=== PATIENT | female | born 1940 | race Two or more races ===

== ENCOUNTER 2017-12-03 21:36 | Inpatient (IN) | payer MEDICARE, OTHER ==
[~2017-12-03] VITALS: Ht 160 cm; Wt 74.8 kg
--- NOTE | 2017-12-03 21:40 | NUR ---
to bed 10 bib paramedics c/o generalized weakness x5 days. pt aaox4 no acute distress noted, resp even and unlabored. place pt on cardiac monitoring, continuous pox. pending er md aivles.
[2017-12-03 22:34] LABS: BASOPHILS % (AUTO) 0.5 % (0.0-2.0); HEMATOCRIT 45 % (33-45); HEMOGLOBIN 14.7 g/dL (11.5-14.8); LYMPHOCYTES # (AUTO) 1.8 /CMM (0.8-4.8); LYMPHOCYTES % (AUTO) 21.3 % (20.0-44.0); MEAN CORPUSCULAR HGB CONC 33 g/dl (31.0-36.0); MEAN CORPUSCULAR VOLUME 96 fL (82-100); MONOCYTES # (AUTO) 0.6 /CMM (0.1-1.30); MONOCYTES % (AUTO) 7.4 % (2.0-12.0); NEUTROPHILS % (AUTO) 69.8 % (43.0-81.0); PLATELET COUNT (AUTO) 207 /CMM (150-450); RDW COEFFICIENT OF VARIATION 15.9 (11.5-15.0); RED BLOOD CELL COUNT(AUTO) 4.71 MIL/uL (4.0-5.2); WHITE BLOOD COUNT (AUTO) 8.6 K/uL (4.3-11.0)
[2017-12-03 22:45] LABS: CALCIUM, SERUM 9.5 mg/dL (8.5-10.1); CARBON DIOXIDE 25 mmol/L (21-32); CHLORIDE 104 mmol/L (98-107); GLUCOSE 75 mg/dL (74-106); POTASSIUM 3.8 mmol/L (3.5-5.1); SODIUM SERUM 141 mmol/L (136-145); UREA NITROGEN, BLOOD 21 mg/dL (7-18)
[2017-12-03 22:51] LABS: ALANINE AMINOTRANSFERASE 24 U/L (12-78); ALBUMIN 3.1 g/dL (3.4-5.0); ALKALINE PHOSPHATASE 58 U/L (46-116); ASPARTATE AMINOTRANSFERASE 27 U/L (15-37); BILIRUBIN,DIRECT 0.1 mg/dL (0.0-0.2); BILIRUBIN,TOTAL 0.6 mg/dL (0.2-1.0)
[2017-12-03 22:53] LABS: TROPONIN I < 0.017 ng/mL (0.00-0.056)
[2017-12-03 22:56] LABS: INR 1.08 (0.87-1.13)
--- NOTE | 2017-12-03 23:15 | NUR ---
I&O cath done, urine sample collected and sent to lab.
--- NOTE | 2017-12-03 23:45 | NUR ---
JACKELIN VASQUEZ SON LEFT INFO IN CASE THE PATIENT GETS DISCHARGED.
[2017-12-03 23:52] LABS: APPEARANCE,URINE SL CLOUDY (CLEAR); BILIRUBIN,URINE NEGATIVE (NEGATIVE); BLOOD, URINE NEGATIVE Ery/uL (NEGATIVE); COLOR,URINE YELLOW (YELLOW); KETONES,URINE NEGATIVE (NEGATIVE); LEUKOCYTE ESTERASE ,URINE 3+ (NEGATIVE); NITRITE, URINE NEGATIVE (NEGATIVE); PROTEIN,URINE NEGATIVE (NEGATIVE); UGLUCOSE 1+ mg/dL (NEGATIVE); UROBILINOGEN,URINE 0.2 EU/dL (0.2)
[2017-12-04] VITALS (7 sets, daily range): BP systolic 106–147; BP diastolic 60–86
[2017-12-04] LABS: BACTERIA,URINE Few /HPF (None Seen); RBC,URINE 0-2 /HPF (0-2); SQUAMOUS EPITHELIAL CELL,UR Few /HPF (None Seen); WBC,URINE 21-50 /HPF (0-3)
[2017-12-04] MEDS ORDERED: CEFTRIAXONE 1GM BAG (ER ONLY) 50 ML IV ONE (00:28)
[2017-12-04] MEDS ORDERED: CEFTRIAXONE 1GM BAG (ER ONLY) 1 GM/50 ML PIGGYBACK IV ONE (00:30)
--- NOTE | 2017-12-04 00:31 | NUR ---
report called to telephone clerksallie hughes. will transport pt via acls protocol.
--- NOTE | 2017-12-04 01:30 | NUR ---
REAL RN NOTES RECEIVED REPORT FROM ER NURSE ED. RECEIVED PATIENT ON GURNEY, ALERT/ ORIENTED X4, CHINESE SPEAKER. NO APPARENT DISTRESS,NO COMPLAIN OF PAIN, NO SOB NOTED AT THIS TIME.ON SAILING INSTRUCTOR HR IS 77 SR WITH PVC. PT IS ON NC 2L O2WITH SPO2 OF 98%, LEFT FOREARM IV LINE IS INTACT, PATIENT.NO IV FLUIDS FOR NOW. WILL CONTINUE TO MONITOR.
[2017-12-04] MEDS ORDERED: ACETAMINOPHEN 325 MG TABLET PO PRN (02:30)
[2017-12-04] MEDS ORDERED: ONDANSETRON HCL/PF 4 MG/2 ML VIAL IVP PRN (02:30)
[2017-12-04 02:35] LABS: BASOPHILS % (AUTO) 0.3 % (0.0-2.0); EOSINOPHILS % (AUTO) 0.6 % (0.0-6.0); HEMATOCRIT 46 % (33-45); HEMOGLOBIN 15.2 g/dL (11.5-14.8); LYMPHOCYTES % (AUTO) 23.1 % (20.0-44.0); MEAN CORPUSCULAR HGB CONC 33 g/dl (31.0-36.0); MEAN CORPUSCULAR VOLUME 96 fL (82-100); MONOCYTES # (AUTO) 0.6 /CMM (0.1-1.30); MONOCYTES % (AUTO) 7.1 % (2.0-12.0); NEUTROPHILS # (AUTO) 5.9 /CMM (1.8-8.9); NEUTROPHILS % (AUTO) 68.9 % (43.0-81.0); PLATELET COUNT (AUTO) 210 /CMM (150-450); RDW COEFFICIENT OF VARIATION 16.1 (11.5-15.0); RED BLOOD CELL COUNT(AUTO) 4.85 MIL/uL (4.0-5.2); WHITE BLOOD COUNT (AUTO) 8.6 K/uL (4.3-11.0)
[2017-12-04 02:45] LABS: ALANINE AMINOTRANSFERASE 27 U/L (12-78); ALBUMIN 3.2 g/dL (3.4-5.0); ALKALINE PHOSPHATASE 61 U/L (46-116); ASPARTATE AMINOTRANSFERASE 31 U/L (15-37); BILIRUBIN,TOTAL 0.7 mg/dL (0.2-1.0); CALCIUM, SERUM 9.7 mg/dL (8.5-10.1); CARBON DIOXIDE 26 mmol/L (21-32); CHLORIDE 106 mmol/L (98-107); CREATININE 0.9 mg/dL (0.6-1.3); GLUCOSE 71 mg/dL (74-106); MAGNESIUM 1.8 mg/dL (1.8-2.4); PHOSPHORUS 4.3 mg/dL (2.5-4.9); POTASSIUM 4.4 mmol/L (3.5-5.1); SODIUM SERUM 142 mmol/L (136-145); TOTAL PROTEIN, SERUM 7.4 g/dL (6.4-8.2); UREA NITROGEN, BLOOD 20 mg/dL (7-18)
[2017-12-04] MEDS: IV NS 0.9% 1,000 ML IV PRN ×2 (02:59→23:00)
[2017-12-04 03:06] LABS: CHOLESTEROL 130 mg/dL (<200); HDL CHOLESTEROL 62 mg/dL (40-60); LDL 62 mg/dL (0-99); THYROID STIMULATING HORMONE 2.235 uIU/mL (0.358-3.74); TRIGLYCERIDES 64 mg/dL (30-150)
[2017-12-04 03:20] LABS: TROPONIN I < 0.017 ng/mL (0.00-0.056)
--- NOTE | 2017-12-04 08:00 | NUR ---
telesales supervisor note patient in bed , all needs attended, on tele monitor sr hr 80 , bed in lowest and locked position ,assisted to bsc able to urinate yellow color urine , call light within reach ,on 2l nc of o2 no sob noted at this time, lt fa hl intact no s\infection noted , on ivf as ordered will cont to monitor closely
[2017-12-04] MEDS: ENOXAPARIN SODIUM 40 MG/0.4 ML DISP.SYRIN SQ SCH (08:24)
--- NOTE | 2017-12-04 10:00 | NUR ---
MELTING FURNACE SKIMMER NOTE ASSISTED TO BSC ,ABLE TO URINATE WELL
[2017-12-04] MEDS ORDERED: FESO8TAB PO (11:07)
[2017-12-04] MEDS ORDERED: TRIH2TAB3 PO (11:07)
[2017-12-04] MEDS ORDERED: PANT40TA2 PO (11:07)
[2017-12-04] MEDS ORDERED: MEMA10TA PO (11:07)
[2017-12-04] MEDS ORDERED: EZET10TA14 PO (11:07)
[2017-12-04] MEDS ORDERED: METH5TAB6 PO (11:07)
[2017-12-04] MEDS ORDERED: ALLO100T PO (11:07)
[2017-12-04] MEDS ORDERED: FURO40TA5 PO (11:07)
[2017-12-04] MEDS ORDERED: TICA90TA PO (11:07)
[2017-12-04] MEDS ORDERED: VALS160T29 PO (11:07)
[2017-12-04] MEDS ORDERED: ROSU20TA PO (11:07)
[2017-12-04] MEDS ORDERED: EMPA1TAB9 PO (11:07)
[2017-12-04] MEDS ORDERED: INSU100I19 SQ (11:07)
[2017-12-04] MEDS ORDERED: SPIR25TA PO (11:07)
[2017-12-04] MEDS ORDERED: INSU100V11 SQ (11:07)
[2017-12-04] MEDS ORDERED: METO100T14 PO (11:07)
[2017-12-04] MEDS ORDERED: SITA100T PO (11:07)
--- NOTE | 2017-12-04 11:21 | NUR ---
LIFTER/DRIVER NOTE 2D ECHO DONE ORDERED .SEEN DR REYNA BURRELL TO [facility]
--- NOTE | 2017-12-04 12:42 | NUR ---
TECHNICAL SERVICES CONSULTANT NOTE SPOKE WITH DR ORELLANA, NOTIFIED TO CHECK MED RECON, STATED OK WILL DO IT
--- NOTE | 2017-12-04 15:30 | NUR ---
VP ANCILLARY NOTE FAMILY AT BEDSIDE ,ALL NEEDS ATTENDED, NOT IN ACUTE DISTRESS
--- NOTE | 2017-12-04 18:52 | NUR ---
HEATER ROOM HELPER NOTE NEW HL INSERTED ON RT AC PRATEEK 22 AND LT HAND PRATEEK 24 WITH GOOD BLOOD RETURN , HAVING DINER ABLE TO EAT SE SELF WITH ASSISTANCE ,NOT IN ACUTE DISTRESS, WILL CONT TO MONITOR CLOSELY
[2017-12-04] MEDS: CEFTRIAXONE 1 G in IV D5W 50 ML IV SCH (23:11)
[2017-12-05] VITALS: BP 122/67
[2017-12-05 04:00] VITALS: BP 109/50
--- NOTE | 2017-12-05 05:01 | NUR ---
PUBLIC HEALTH EDUCATOR NOTES: RECEIVED PT. FROM RN. HERR AT 03:34 AM FOR SUSANNA. PT. SLEEPING W/ IVF GOING W/ NO S/S OF INFECTION/INFILTRATION NOTED. NOT IN ANY ACUTE DISTRESS. WILL CONTINUE TO MONITOR.
[2017-12-05 06:42] LABS: BASOPHILS # (AUTO) 0.1 /CMM (0.0-0.2); BASOPHILS % (AUTO) 0.8 % (0.0-2.0); HEMATOCRIT 42 % (33-45); HEMOGLOBIN 13.8 g/dL (11.5-14.8); LYMPHOCYTES # (AUTO) 2.1 /CMM (0.8-4.8); LYMPHOCYTES % (AUTO) 33.7 % (20.0-44.0); MEAN CORPUSCULAR HGB CONC 33 g/dl (31.0-36.0); MEAN CORPUSCULAR VOLUME 96 fL (82-100); MONOCYTES # (AUTO) 0.7 /CMM (0.1-1.30); MONOCYTES % (AUTO) 10.9 % (2.0-12.0); NEUTROPHILS # (AUTO) 3.4 /CMM (1.8-8.9); NEUTROPHILS % (AUTO) 53.6 % (43.0-81.0); PLATELET COUNT (AUTO) 182 /CMM (150-450); RDW COEFFICIENT OF VARIATION 16.5 (11.5-15.0); WHITE BLOOD COUNT (AUTO) 6.4 K/uL (4.3-11.0)
[2017-12-05 07:00] LABS: CARBON DIOXIDE 23 mmol/L (21-32); CHLORIDE 108 mmol/L (98-107); CREATININE 0.8 mg/dL (0.6-1.3); GLUCOSE 158 mg/dL (74-106); MAGNESIUM 1.9 mg/dL (1.8-2.4); PHOSPHORUS 3.5 mg/dL (2.5-4.9); POTASSIUM 3.7 mmol/L (3.5-5.1); SODIUM SERUM 139 mmol/L (136-145); UREA NITROGEN, BLOOD 15 mg/dL (7-18)
--- NOTE | 2017-12-05 07:34 | NUR ---
SECURITY ATTENDANT NOTES: NO ACUTE CHANGES NOTED DURING THIS SHIFT. REPORT GIVEN TO AM NURSE FOR SUSANNA.
[2017-12-05 08:00] VITALS: BP 112/60
[2017-12-05] MEDS: ENOXAPARIN SODIUM 40 MG/0.4 ML DISP.SYRIN SQ SCH (08:37)
--- NOTE | 2017-12-05 08:39 | NUR ---
DENITRATOR NOTES PATIENT IS AWAKE, URDU SPEAKING ONLY. BREAKFAST IS SERVED, FAIR APPETITE. IVC IN RIGHT AC PATENT AND INTACT, ANOTHER IVC IN LEFT HAND WITH NS INFUSING AT 75ML/HR. SINUS TACH WITH PVC HR 111 ON THE TELE MONITOR. CALL LIGHT WITHIN REACH, BED LOW AND LOCKED. WILL CONT TO MONITOR.
--- NOTE | 2017-12-05 10:15 | NUR ---
HOME MEDICATIONS FOR REVIEW, INFORMED DR. REYNA ORTEGA.
[2017-12-05 12:30] VITALS: BP 134/56
[2017-12-05] MEDS: IV NS 0.9% 1,000 ML IV PRN (14:33)
--- NOTE | 2017-12-05 15:00 | NUR ---
[facility] MEDS FOR REVIEW, DR. REYNA ORTEGA WAS INFORMED.
[2017-12-05 16:18] VITALS: BP 124/68
--- NOTE | 2017-12-05 18:23 | NUR ---
LUMBER HANDLER CLOSING NOTES CONTINUE HOSPITALIZATION PER MD. PATIENT IS COOPERATIVE, FOLLOW SIMPLE COMMANDS, NEED FRISIAN WEBFED OFFSET PRESS OPERATOR. CONT ON TELEMONITOR SINUS TACH HR 117 WITH PVC. AMBULATE WITH ASSIST, VOIDED WITHOUT DIFFICULTY, ON ANTIBIOTIC FOR UTI WITH NO ADVERSE SIDE EFFECT. IVF NS INFUSING AT 75ML/HR, OFFERED PO FLUIDS. URINE CULTURE PENDING. AFEBRILE DURING THE SHIFT. CALL LIGHT WITH IN REACH. WILL ENDORSE TO ONCOMING RN.
[2017-12-05 20:00] VITALS: BP 136/61
--- NOTE | 2017-12-05 20:00 | NUR ---
RN INITIAL NOTES RECEIVED PATIENT AWAKE, TRISTANIAN SPEAKING ONLY. IVC IN RIGHT AC PATENT AND INTACT, ANOTHER IVC IN LEFT HAND WITH NS INFUSING AT 75ML/HR. ST WITH HR 120 ON THE TELE MONITOR. CALL LIGHT WITHIN REACH, BED LOW AND LOCKED. WILL CONT TO MONITOR.
[2017-12-05] MEDS: CEFTRIAXONE 1 G in IV D5W 50 ML IV SCH (23:53)
[2017-12-06] VITALS: BP 136/75
[2017-12-06 04:00] VITALS: BP 130/76
--- NOTE | 2017-12-06 07:00 | NUR ---
RN NOTE RECEIVED PT ON BED, ALERT/ SWEDISH SPEAKING , ON 2L O2 N/C , NO DISTRESS NOTED, ON TELE ST WITH PVC'S , HR IN 110'S , NS AT 75CC/HR RUNNING VIA L HAND IV , SITE CDI, SR UP x3, CALL LIGHT WITHIN EASY REACH, BED LOCKED AND IN LOWEST POSITION, CONTINUE TO MONITOR.
--- NOTE | 2017-12-06 07:22 | NUR ---
DICTATING TRANSCRIBING MACHINE SERVICER NOTES: NO ACUTE CHANGES NOTED DURING THIS SHIFT. REPORT GIVEN TO AM NURSE FOR SUSANNA.
[2017-12-06 08:00] VITALS: BP 105/53
[2017-12-06] MEDS: ENOXAPARIN SODIUM 40 MG/0.4 ML DISP.SYRIN SQ SCH (08:18)
[2017-12-06 12:00] VITALS: BP 114/55
--- NOTE | 2017-12-06 14:59 | NUR ---
RN NOTE DR ORELLANA NOTIFIED REGARDING MED RECON.
[2017-12-06 16:00] VITALS: BP 130/66
--- NOTE | 2017-12-06 18:00 | NUR ---
RN NOTES PT STABLE ,SR UP x3, CALL LIGHT WITHIN EASY REACH, WILL ENDOSE TO SHOVEL LOGGER NURSE FOR SUSANNA.
[2017-12-06] MEDS ORDERED: DEXTROSE 50%-WATER 50 ML DISP.SYRIN IV PRN (19:30)
[2017-12-06 20:00] VITALS: BP 124/70
--- NOTE | 2017-12-06 20:00 | NUR ---
TELE/RN OPENING NOTES PATIENT IN BED, HOB ELEVATED, REQUIRE ASISTANCE WITH ADS, RESPIRATIONS EVEN AND UNLABORED, ON OXYGEN VIA NC AT 2L, SKIN WARM TO TOUCH, PARTICIPATIVE TO CARE, BLOOD SUGAR CHECK, OFFERED / PROVIDED FLUIDS, KEEP SKIN INTACT AND DRY, LEFT HAND AND RIGHT AC , PATENT AND ABLE TO FLUSH. RECEIVE REPORT FROM AM RN FOR SUSANNAMD MADE AWARE FOR MEDICATION RECONCILLATION AND ORDER FOR FINGER STICK AC/HS MONITORING.
[2017-12-06] MEDS: BLOOD SUGAR DIAGNOSTIC 1 EACH STRIP IN SCH ×2 (20:19→22:11)
[2017-12-06] MEDS: INSULIN REGULAR, HUMAN 100 UNIT/ML 3 ML VIAL SQ PRN (20:26)
[2017-12-06] MEDS: METOPROLOL TARTRATE 50 MG TABLET PO SCH (21:00)
--- NOTE | 2017-12-06 21:00 | NUR ---
TELE/RN NOTES RECEIVED CALL FROM PHARMACY TO F/U HOME MEDICATION OF PATIENT REGARDING DOSE FOR LANTUS, WILL ENDORSE TO AM RN /TO CONTACT FAMILY FOR CLARIFICATION OF UNIT DOSE AND [place] HOME MEDS.
[2017-12-06] MEDS ORDERED: ATORVASTATIN 40 MG TABLET PO SCH (22:00)
[2017-12-07] VITALS: BP 132/55
[2017-12-07] MEDS: CEFTRIAXONE 1 G in IV D5W 50 ML IV SCH (00:56)
[2017-12-07 06:00] VITALS: BP 132/55
--- NOTE | 2017-12-07 07:10 | NUR ---
CALTRANS EQUIPMENT OPERATOR NOTES RECEIVED PT IN BED IN SEMI GALLOWAY POSITION, ALERT, NO SOB NOTED, NO C/O PAIN, ON 2 LPM O2 VIA NC, TOLERATING WELL, AFEBRILE, WITH INTACT AND PATENT SL ON LHAND AND RAC. SAFETY MEASURES OBSERVED, CALL LIGHT WITHIN REACH, PM NURSE ENDORSED TO VERIFY LANTUS AND BRILANTA WITH PT'S FAMILY FOR MED RECON, WILL FOLLOW UP LATER, WILL CONT TO MONITOR PT
--- NOTE | 2017-12-07 07:40 | NUR ---
TELE/RN NOTES PATIETN RESTING COMFORTABLY IN BED, ALERT, ORIENTED X3, RESPIRATIONS EVEN AND UNLABORED, NO S/S OF DISCOMFORT. WILL MONITOR, ENDORSE TO AM RN FOR SUSANNA.
[2017-12-07] MEDS: BLOOD SUGAR DIAGNOSTIC 1 EACH STRIP IN SCH ×2 (07:54→11:47)
[2017-12-07 08:00] VITALS: BP 110/70
[2017-12-07] MEDS: INSULIN REGULAR, HUMAN 100 UNIT/ML 3 ML VIAL SQ PRN ×2 (08:12→12:26)
[2017-12-07] MEDS ORDERED: EZETIMIBE 10 MG TABLET PO SCH (09:00)
[2017-12-07] MEDS ORDERED: LINAGLIPTIN 5 MG TABLET PO SCH (09:00)
[2017-12-07] MEDS ORDERED: VALSARTAN 80 MG TABLET PO SCH (09:00)
[2017-12-07] MEDS ORDERED: ALLOPURINOL 100 MG TABLET PO SCH (09:00)
[2017-12-07] MEDS ORDERED: MEMANTINE HCL 5 MG TABLET PO SCH (09:00)
[2017-12-07] MEDS ORDERED: INSULIN GLARGINE, 100 UNIT/ML CARTRIDGE SQ SCH (09:00)
[2017-12-07] MEDS ORDERED: SPIRONOLACTONE 25 MG TABLET PO SCH (09:00)
[2017-12-07] MEDS ORDERED: METHIMAZOLE (5MG) 5 MG TABLET PO SCH (09:00)
[2017-12-07] MEDS ORDERED: METFORMIN XR 500 MG TAB.SR.24H PO SCH (09:00)
[2017-12-07] MEDS ORDERED: TRIHEXYPHENIDYL HCL 2 MG TABLET PO SCH (09:00)
[2017-12-07] MEDS ORDERED: TICAGRELOR 90 MG TABLET PO SCH (09:00)
[2017-12-07] MEDS: METOPROLOL TARTRATE 50 MG TABLET PO SCH (09:21)
[2017-12-07] MEDS: ENOXAPARIN SODIUM 40 MG/0.4 ML DISP.SYRIN SQ SCH (09:25)
--- NOTE | 2017-12-07 09:55 | NUR ---
PRESS CLEANER NOTES CALLED AND LEFT MESSAGE TO PT'S SON JACKELIN TO RE: CLARIFICATION OF LANTUS AND BRILANTA, AWAITING TO CALL BACK
[2017-12-07] MEDS ORDERED: TICAGRELOR 90 MG TABLET PO ONE (10:00)
[2017-12-07] MEDS ORDERED: CEPH-569 PO (11:31)
[2017-12-07] MEDS ORDERED: AMPI250C13 PO (11:34)
[2017-12-07 12:00] VITALS: BP 117/90
--- NOTE | 2017-12-07 15:38 | NUR ---
RN D/C NOTES D/C PT TO HOME IN STABLE CONDITION IN W/C ACCOMPANIED BY HEAD BOOKKEEPER AND GRANDSON JACKELIN, PT IN NO ACUTE DISTRESS, NO C/O PAIN, HEPLOCK D/C. IV CATH INTACT WITH NO SIGNS OF BLEEDING/INFECTION, PRESSURE DRESSING APPLIED, D/ INSTRUCTIONS AND HOME MEDS DISCUSSED WITH PT AND PT'S GRANDSON (JACKELIN), SAFETY MEASURES MAINTAINED, ALL NEEDS ATTENDED, D/C
== END 2017-12-07 15:40 | disposition home or self-care (01) | DRG 690 ==
LOC: ER 21:43 → TELE1 12-04 00:21
PROVIDERS: ADMIT Nurse Practitioner Acute Care; ATTEND Nurse Practitioner Acute Care
DX: N39.0 Urinary tract infection, site not specified (principal); Z86.73 Personal history of transient ischemic attack (TIA), and cerebral infarction without residual deficits; I25.10 Atherosclerotic heart disease of native coronary artery without angina pectoris; F32.9 Major depressive disorder, single episode, unspecified; E11.9 Type 2 diabetes mellitus without complications; Z95.5 Presence of coronary angioplasty implant and graft; I10 Essential (primary) hypertension; Z79.4 Long term (current) use of insulin; Z79.899 Other long term (current) drug therapy; Z79.84 Long term (current) use of oral hypoglycemic drugs
CPT/HCPCS: 36415; 70450-TC; 71045-TC; 80048-TC; 80053-TC; 80061-TC; 80076-TC; 81000-TC; 82962-TC; 83605-TC; 83735-TC; 84100-TC; 84443-TC; 84484-TC; 85025-TC; 85730-TC; 87040-TC; 87081-TC; 87086-TC; 87186-TC; 93307-TC; 97116-TC; 97530-TC; A4606; J0696; J1650; J1815; J7030; J7060; Z7610

== ENCOUNTER 2018-01-30 22:48 | Inpatient (IN) | payer MEDICARE, OTHER ==
[~2018-01-30] VITALS: Ht 172.7 cm; Wt 81.6 kg
--- NOTE | 2018-01-30 12:04 | NUR ---
RN INITIAL NOTE: RECEIVED PATIENT IN BED AWAKE, A/OX1, CONFUSED, PITCAIRN ISLANDER SPIKING ONLY. RESPIRATION EVEN AND UNLABORED ON O2 2L/MIN VIA NC AND SATURATING 100%. NO FACIAL GRIMACING AND NO MOANING NOTED. ON OPERATING SYSTEMS SPECIALIST SR HR= 69. HOB ELEVATED @ 35 DEGREE. (L) HAND IV LINE IS FLASHED AND PATIENT COMPLAINS OF PAIN DURING FLUSHING. (B) HANDS AND (B) FEET NOTED SWELLING. BED ALARMED AND LOCKED AT ALL TIMES. CALL LIGHT WITHIN REACH. NEEDS ANTICIPATED. WILL CONT TO MONITOR.
[~2018-01-30 22:48] MED LIST: ALLO100T PO; AMPI250C13 PO; EMPA1TAB9 PO; EZET10TA14 PO; FESO8TAB PO; FURO40TA5 PO; INSU100I19 SQ; INSU100V11 SQ; MEMA10TA PO; METH5TAB6 PO; METO100T14 PO; PANT40TA2 PO; ROSU20TA PO; SITA100T PO; SPIR25TA PO; TICA90TA PO; TRIH2TAB3 PO; VALS160T29 PO
--- NOTE | 2018-01-30 22:51 | NUR ---
BIBRA89 FR 4 SEASONS FOR FEVER 101, BG 332 IN FIELD. PT IS AAOX0, GCS 10. SKIN HOT AND DRY TO TOUCH. RESP EVEN AND UNLABORED WITH RATE OF 26 SPO2 92% RA. NO S/S OF ACUTE DISTRESS NOTED AT THIS TIME. PT PLACED ON CRIME LAB ANALYST AND POX. PT SAFETY AND COMFORT MEASURES IN PLACE. BEDSIDE FOR EVAL.
[2018-01-30] MEDS ORDERED: ACETAMINOPHEN 650 MG/SUPP.RECT RC ONE ×2 (23:00→23:14)
[2018-01-30] MEDS ORDERED: LEVOFLOXACIN 750 MG /D5W 150ML PIGGYBACK IV ONE (23:00)
[2018-01-30] MEDS ORDERED: AZTREONAM 1 G in IV NS 0.9% 100 ML IV ONE (23:00)
[2018-01-30 23:08] LABS: HEMATOCRIT 34 % (33-45); LYMPHOCYTES # (AUTO) 2.4 /CMM (0.8-4.8); LYMPHOCYTES % (AUTO) 26.2 % (20.0-44.0); MEAN CORPUSCULAR HEMOGLOBIN 31 PG (26.0-33.0); MEAN CORPUSCULAR HGB CONC 32 g/dl (31.0-36.0); MEAN CORPUSCULAR VOLUME 97 fL (82-100); MONOCYTES # (AUTO) 0.3 /CMM (0.1-1.30); MONOCYTES % (AUTO) 3.7 % (2.0-12.0); NEUTROPHILS # (AUTO) 6.3 /CMM (1.8-8.9); NEUTROPHILS % (AUTO) 70.1 % (43.0-81.0); PLATELET COUNT (AUTO) 291 /CMM (150-450); RDW COEFFICIENT OF VARIATION 18.8 (11.5-15.0); WHITE BLOOD COUNT (AUTO) 9.1 K/uL (4.3-11.0)
[2018-01-30] MEDS ORDERED: LEVOFLOXACIN 750 MG /D5W 150ML 150 ML IV ONE (23:14)
[2018-01-30] MEDS ORDERED: AZTREONAM 1 G VIAL ONE (23:14)
[2018-01-30 23:19] LABS: CARBON DIOXIDE 28 mmol/L (21-32); CHLORIDE 116 mmol/L (98-107); CREATININE 0.9 mg/dL (0.6-1.3); GLUCOSE 229 mg/dL (74-106); POTASSIUM 3.3 mmol/L (3.5-5.1); SODIUM SERUM 152 mmol/L (136-145); UREA NITROGEN, BLOOD 16 mg/dL (7-18)
[2018-01-30 23:28] LABS: TROPONIN I 0.026 ng/mL (0.00-0.056)
[2018-01-30 23:32] LABS: B-TYPE NATRIURETIC PEPTIDE 561 PG/ML (0-125)
[2018-01-31] MEDS ORDERED: IV NS 0.9% 1,000 ML BAG IV ONE
[2018-01-31 00:02] LABS: APPEARANCE,URINE SL CLOUDY (CLEAR); BILIRUBIN,URINE NEGATIVE (NEGATIVE); BLOOD, URINE NEGATIVE Ery/uL (NEGATIVE); COLOR,URINE YELLOW (YELLOW); KETONES,URINE 1+ (NEGATIVE); LEUKOCYTE ESTERASE ,URINE TRACE (NEGATIVE); NITRITE, URINE POSITIVE (NEGATIVE); PROTEIN,URINE NEGATIVE (NEGATIVE); UGLUCOSE 3+ mg/dL (NEGATIVE); UROBILINOGEN,URINE 0.2 EU/dL (0.2)
[2018-01-31 00:12] LABS: BACTERIA,URINE Few /HPF (None Seen); RBC,URINE 0-2 /HPF (0-2); SQUAMOUS EPITHELIAL CELL,UR Few /HPF (None Seen); WBC,URINE TOO NUMEROUS TO COUN /HPF (0-3)
--- NOTE | 2018-01-31 00:12 | NUR ---
pt can go to bed 112.2
[2018-01-31 00:13] LABS: YEAST,URINE Many /HPF (None Seen)
--- NOTE | 2018-01-31 00:20 | NUR ---
AMI SPEARS [phone]
[2018-01-31] MEDS ORDERED: MAGNESIUM HYDROXIDE 30 ML UDC PO PRN ×2 (00:30→01:15)
[2018-01-31] MEDS ORDERED: ONDANSETRON HCL/PF 4 MG/2 ML VIAL IVP PRN ×2 (00:30→01:15)
[2018-01-31] MEDS ORDERED: HYDROCODONE/APAP 5/325MG 1 EACH TABLET PO PRN ×2 (00:30→01:15)
[2018-01-31] MEDS ORDERED: INSULIN REGULAR, HUMAN 100 UNIT/ML 3 ML VIAL SQ PRN (00:30)
[2018-01-31] MEDS ORDERED: IV PREMIX D5 1/2NS + KCL 1,000 ML IV PRN ×2 (00:30→01:15)
[2018-01-31] MEDS ORDERED: LEVOFLOXACIN 500 MG /D5W 100ML 500 MG in PREMIX 1 EA IV SCH (00:30)
[2018-01-31] MEDS ORDERED: ACETAMINOPHEN 325 MG TABLET PO PRN ×2 (00:30→01:15)
[2018-01-31] MEDS ORDERED: Z GUARD REMEDY 2 OZ OINT TP PRN (00:30)
[2018-01-31] MEDS ORDERED: MAG HYDROX/AL HYDROX/SIMETH 30 ML UDC PO PRN ×2 (00:30→01:15)
[2018-01-31] MEDS ORDERED: *INSULIN REGULAR(HUMULIN R)HUM 100 UNIT/ML VIAL SQ PRN (00:30)
[2018-01-31] MEDS ORDERED: DEXTROSE 50%-WATER 50 ML DISP.SYRIN IV PRN ×2 (00:30→01:15)
--- NOTE | 2018-01-31 00:52 | NUR ---
REPORT GIVEN TO PHYSIOLOGISTAIMEE PERRY FOR SUSANNA
[2018-01-31 01:00] VITALS: BP 142/70
--- NOTE | 2018-01-31 01:30 | NUR ---
HAND DEICER ELEMENT WINDER NOTE PT RECEIVED AWAKE AND ALERT TO NAME. A/O X1 BUT NON VERBAL AT THIS TIME AND NOTED WITH MOANING WHEN SPOKEN TO. SAFELY TRANSFERRED TO BED IN ROOM 112-2. NO ACUTE DISTRESS NOTED. ON ROOM AIR AND SATURATING 93%, BREATHING EVEN AND UNLABORED. NOTED WITH DIMINISHED BILATERAL BREATH SOUNDS. HOB ELEVATED. TELE- SINUS TACH 125 WITH QUADRIGEMINY PVC. IF LEFT HAND #18 CLEAN, DRY AND FLUSHING WELL WITH FLUIDS INFUSING. CALL LIGHT WITHIN REACH. BED ALARM ENABLED. WILL CONTINUE TO MONITOR.
[2018-01-31] MEDS: LEVOFLOXACIN 500 MG /D5W 100ML 500 MG in PREMIX 1 EA IV SCH (02:00)
[2018-01-31 04:00] VITALS: BP 144/85
[2018-01-31] MEDS: IV 1/2NS 1000 ML 1,000 ML IV PRN ×2 (04:29→21:52)
[2018-01-31 04:30] LABS: BILIRUBIN,DIRECT 0.3 mg/dL (0.0-0.2); BILIRUBIN,TOTAL 0.7 mg/dL (0.2-1.0)
--- NOTE | 2018-01-31 04:30 | NUR ---
SHOULDER PAD MOLDER NOTE RELAYED LACTIC ACID 2.[address] BAXTER WITH ORDERS TO DO AM LABS AND START 1/2 NS AT 75 ML/HR. ALSO GIVE 40 MEQ KDUR PO X1 NOW FOR POTASSIUM OF 3.3. AND START DIABETIC IN AM. ORDERS NOTED AND CARRIED OUT. WILL MONITOR.
[2018-01-31 04:37] LABS: BASOPHILS % (AUTO) 0.1 % (0.0-2.0); HEMATOCRIT 33 % (33-45); HEMOGLOBIN 10.3 g/dL (11.5-14.8); LYMPHOCYTES # (AUTO) 2.5 /CMM (0.8-4.8); LYMPHOCYTES % (AUTO) 27.3 % (20.0-44.0); MEAN CORPUSCULAR HEMOGLOBIN 31 PG (26.0-33.0); MEAN CORPUSCULAR HGB CONC 32 g/dl (31.0-36.0); MEAN CORPUSCULAR VOLUME 98 fL (82-100); MONOCYTES # (AUTO) 0.8 /CMM (0.1-1.30); MONOCYTES % (AUTO) 8.2 % (2.0-12.0); NEUTROPHILS % (AUTO) 64.4 % (43.0-81.0); PLATELET COUNT (AUTO) 236 /CMM (150-450); RDW COEFFICIENT OF VARIATION 18.4 (11.5-15.0); RED BLOOD CELL COUNT(AUTO) 3.32 MIL/uL (4.0-5.2); WHITE BLOOD COUNT (AUTO) 9.2 K/uL (4.3-11.0)
[2018-01-31 04:43] LABS: CALCIUM, SERUM 7.3 mg/dL (8.5-10.1); CARBON DIOXIDE 29 mmol/L (21-32); CHLORIDE 117 mmol/L (98-107); CREATININE 0.7 mg/dL (0.6-1.3); GLUCOSE 167 mg/dL (74-106); MAGNESIUM 1.8 mg/dL (1.8-2.4); PHOSPHORUS 3.2 mg/dL (2.5-4.9); SODIUM SERUM 153 mmol/L (136-145); UREA NITROGEN, BLOOD 17 mg/dL (7-18)
[2018-01-31] MEDS ORDERED: POTASSIUM CHLORIDE 20 MEQ TAB.PRT.SR PO ONE (05:00)
[2018-01-31] MEDS ORDERED: PANTOPRAZOLE 40 MG TABLET.DR PO SCH (07:30)
[2018-01-31] MEDS ORDERED: BLOOD SUGAR DIAGNOSTIC 1 EACH STRIP VI SCH (07:30)
--- NOTE | 2018-01-31 07:45 | NUR ---
ANESTHESIOLOGY FELLOW NOTE: RECEIVED PATIENT IN BED, ASLEEP BUT AROUSABLE WHEN CALLING HER NAME. RESPIRATION EVEN AND UNLABORED ON O2 2L/MIN VIA NC AND SATURATING 99%. NO FACIAL GRIMACING AND NO MOANING NOTED. ON TAILINGS DAM LABORER ST HR= 116. HOB ELEVATED @ 35 DEGREE. (L) HAND IV LINE NOTED PATENT AND INTACT INFUSING 0.45% NS @75ML/HR. BED ALARMED AND LOCKED AT ALL TIMES. CALL LIGHT WITHIN REACH. NEEDS ANTICIPATED.
[2018-01-31 08:00] VITALS: BP 157/81
[2018-01-31] MEDS: BLOOD SUGAR DIAGNOSTIC 1 EACH STRIP VI SCH ×4 (08:00→21:37)
[2018-01-31] MEDS: PANTOPRAZOLE 40 MG TABLET.DR PO SCH (08:14)
[2018-01-31] MEDS: ALLOPURINOL 100 MG TABLET PO SCH (08:14)
[2018-01-31] MEDS: METHIMAZOLE (5MG) 5 MG TABLET PO SCH (08:14)
[2018-01-31] MEDS: EZETIMIBE 10 MG TABLET PO SCH (08:14)
[2018-01-31] MEDS ORDERED: METHIMAZOLE (5MG) 5 MG TABLET PO SCH (09:00)
[2018-01-31] MEDS ORDERED: ALLOPURINOL 100 MG TABLET PO SCH (09:00)
[2018-01-31] MEDS ORDERED: EZETIMIBE 10 MG TABLET PO SCH (09:00)
[2018-01-31] MEDS: MEMANTINE HCL 5 MG TABLET PO SCH ×2 (10:43→17:14)
[2018-01-31] MEDS: METOPROLOL TARTRATE 50 MG TABLET PO SCH ×2 (10:50→21:35)
[2018-01-31 12:00] VITALS: BP 129/74
[2018-01-31] MEDS: POTASSIUM CL. PREMIX PERIPHER. 50 ML IV SCH ×4 (12:09→15:43)
--- NOTE | 2018-01-31 14:01 | NUR ---
WOUND CARE CONSULT WOUND CARE RECEIVED CONSULT FOR SACRAL REDNESS/LEFT ARM SKIN TEAR. WOUND CARE WILL DEFER CONSULT AND ALL TREATMENT PLANS TO SURGICAL TEAM WHO ARE CURRENTLY FOLLOWING. PATIENT WITH ISRAEL AT 15, ALL PRESSURE ULCER PREVENTION MEASURES NOTED TO BE IN PLACE. WILL SEE PRN.
[2018-01-31 16:00] VITALS: BP 143/89
[2018-01-31 20:00] VITALS: BP 113/57
--- NOTE | 2018-01-31 20:00 | NUR ---
RN NOTE PT RECEIVED AWAKE AND ALERT TO NAME. A/O X1. ON ROOM AIR AND SATURATING 93%, BREATHING EVEN AND UNLABORED. HOB ELEVATED. TELE- SR HR 80 WITH PVC. IF LEFT HAND #18 CLEAN, DRY AND FLUSHING WELL WITH FLUIDS INFUSING. CALL LIGHT WITHIN REACH. BED ALARM ENABLED. WILL CONTINUE TO
[2018-01-31] MEDS: ATORVASTATIN 40 MG TABLET PO SCH (21:35)
[2018-01-31] MEDS: *INSULIN REGULAR(HUMULIN R)HUM 100 UNIT/ML VIAL SQ PRN (21:48)
[2018-02-01] VITALS: BP 95/51
[2018-02-01] MEDS: LEVOFLOXACIN 500 MG /D5W 100ML 500 MG in PREMIX 1 EA IV SCH (01:21)
[2018-02-01 04:00] VITALS: BP 107/62
[2018-02-01 06:34] LABS: CALCIUM, SERUM 7.5 mg/dL (8.5-10.1); CARBON DIOXIDE 27 mmol/L (21-32); CHLORIDE 116 mmol/L (98-107); CREATININE 0.7 mg/dL (0.6-1.3); GLUCOSE 112 mg/dL (74-106); PHOSPHORUS 2.8 mg/dL (2.5-4.9); POTASSIUM 3.7 mmol/L (3.5-5.1); SODIUM SERUM 148 mmol/L (136-145); UREA NITROGEN, BLOOD 19 mg/dL (7-18)
--- NOTE | 2018-02-01 06:41 | NUR ---
RN CLOSING NOTES NO CHANGE IN PTS CONDITION OVER SHIFT. WILL CONT TO MONITOR.
[2018-02-01 06:42] LABS: BASOPHILS % (AUTO) 0.2 % (0.0-2.0); EOSINOPHILS % (AUTO) 1.2 % (0.0-6.0); HEMATOCRIT 31 % (33-45); HEMOGLOBIN 10.2 g/dL (11.5-14.8); LYMPHOCYTES # (AUTO) 2.3 /CMM (0.8-4.8); LYMPHOCYTES % (AUTO) 23.1 % (20.0-44.0); MEAN CORPUSCULAR HEMOGLOBIN 32 PG (26.0-33.0); MEAN CORPUSCULAR HGB CONC 33 g/dl (31.0-36.0); MEAN CORPUSCULAR VOLUME 99 fL (82-100); MONOCYTES # (AUTO) 0.7 /CMM (0.1-1.30); MONOCYTES % (AUTO) 7.2 % (2.0-12.0); NEUTROPHILS # (AUTO) 6.9 /CMM (1.8-8.9); NEUTROPHILS % (AUTO) 68.3 % (43.0-81.0); PLATELET COUNT (AUTO) 232 /CMM (150-450); RDW COEFFICIENT OF VARIATION 18.5 (11.5-15.0); RED BLOOD CELL COUNT(AUTO) 3.16 MIL/uL (4.0-5.2); WHITE BLOOD COUNT (AUTO) 10.1 K/uL (4.3-11.0)
--- NOTE | 2018-02-01 07:30 | NUR ---
PACKING CLERK NOTE: RECEIVED PATIENT IN BED, ASLEEP BUT AROUSABLE WHEN CALLING HER NAME. RESPIRATION EVEN AND UNLABORED ON O2 2L/MIN VIA NC AND SATURATING 100%. NO FACIAL GRIMACING AND NO MOANING NOTED. ON HEAD TENNIS PROFESSIONAL SR HR= 72. HOB ELEVATED @ 35 DEGREE. (L) HAND IV LINE NOTED PATENT AND INTACT INFUSING 0.45% NS @75ML/HR. (B) HANDS AND (B) FEET NOTED SWELLING. BED ALARMED AND LOCKED AT ALL TIMES. CALL LIGHT WITHIN REACH. NEEDS ANTICIPATED.
[2018-02-01] MEDS: BLOOD SUGAR DIAGNOSTIC 1 EACH STRIP VI SCH ×4 (07:54→21:02)
[2018-02-01 08:00] VITALS: BP 128/57
[2018-02-01] MEDS: PANTOPRAZOLE 40 MG TABLET.DR PO SCH (09:07)
[2018-02-01] MEDS: METHIMAZOLE (5MG) 5 MG TABLET PO SCH (09:07)
[2018-02-01] MEDS: ALLOPURINOL 100 MG TABLET PO SCH (09:07)
[2018-02-01] MEDS: EZETIMIBE 10 MG TABLET PO SCH (09:07)
[2018-02-01] MEDS: MEMANTINE HCL 5 MG TABLET PO SCH ×2 (09:08→17:37)
[2018-02-01] MEDS: METOPROLOL TARTRATE 50 MG TABLET PO SCH ×2 (09:09→21:02)
[2018-02-01] MEDS ORDERED: FEE PK DOSING 1 MIN EA MC ONE (09:32)
[2018-02-01] MEDS: VANCOMYCIN 1 GM in IV NS 0.9% 250 ML IV SCH ×2 (10:02→21:01)
--- NOTE | 2018-02-01 10:13 | NUR ---
STAIN MAKER NOTE: DR. ORELLANA WAS MADE AWARE THAT THE PATIENT WAS ABLE TO EAT 50% OF HER BREAKFAST MEAL TODAY WITH TOTAL ASSISTANCE FROM THE NURSE. ORDERED FOR THE PT EVALUATION FOR THE PATIENT. REGAN MUELLER WAS MADE AWARE.
--- NOTE | 2018-02-01 11:15 | NUR ---
CANVAS REPAIRER NOTE: PATIENT WAS SEEN AND EVALUATED BY THE PHYSICAL THERAPIST AND PER PT THE PATIENT WILL BE FOLLOW-UP BY THE SKILLED PT DAILY FOR EXERCISE. REGAN MUELLER WAS MADE AWARE.
[2018-02-01 12:00] VITALS: BP 116/53
[2018-02-01] MEDS: INSULIN REGULAR, HUMAN 100 UNIT/ML 3 ML VIAL SQ PRN ×3 (12:36→21:14)
[2018-02-01 16:00] VITALS: BP 126/60
[2018-02-01] MEDS: Z GUARD REMEDY 2 OZ OINT TP PRN (17:52)
--- NOTE | 2018-02-01 18:14 | NUR ---
DAIRY LAB TECHNICIAN NOTE: INFORMED DR. ORELLANA REGARDING THE PATIENT'S PO INTAKE OF 100% FOR DINNER AND 50% FOR BOTH BREAKFAST AND LUNCH. PER JESUS MACKEY IV FLUID. NOTED AND CARRIED OUT. DR. ORELLANA WAS ALSO AWARE THAT THE PATIENT HAS (B) HANDS SWELLING AND IT IS ELEVATED WITH PILLOW. DAUGHTER PRESENT AND AWARE AT THE BEDSIDE.
--- NOTE | 2018-02-01 19:37 | NUR ---
ARMORED SERVICE TECHNICIAN NOTE: PATIENT IN BED WITH HER DAUGHTER AND OTHER FAMILY MEMBER AT THE BEDSIDE. PATIENT ATE 100% OF HER DINNER FED BY HER DAUGHTER. REPORT GIVEN TO PM SHIFT NURSE FOR CONTINUITY OF CARE.
[2018-02-01 20:00] VITALS: BP 100/55
--- NOTE | 2018-02-01 20:00 | NUR ---
RN INITIAL NOTE: RECEIVED PATIENT IN BED AWAKE . RESPIRATION EVEN AND UNLABORED ON O2 2L/MIN VIA NC AND SATURATING 100%. NO FACIAL GRIMACING AND NO MOANING NOTED. ON LOCK SETTER SR HR= 85. HOB ELEVATED @ 35 DEGREE. (L) HAND IV LINE NOTED PATENT AND INTACT S/L. (B) HANDS AND (B) FEET NOTED SWELLING. BED ALARMED AND LOCKED AT ALL TIMES. CALL LIGHT WITHIN REACH. NEEDS ANTICIPATED. WILL CONT TO MONITOR.
[2018-02-01] MEDS: ATORVASTATIN 40 MG TABLET PO SCH (21:01)
[2018-02-02] VITALS: BP 100/55
[2018-02-02] MEDS: LEVOFLOXACIN 500 MG /D5W 100ML 500 MG in PREMIX 1 EA IV SCH (01:35)
[2018-02-02 04:00] VITALS: BP_SYST 111; BP_SYST 113; BP_DIAS 62; BP_DIAS 64
[2018-02-02 07:50] LABS: CALCIUM, SERUM 7.3 mg/dL (8.5-10.1); CARBON DIOXIDE 23 mmol/L (21-32); CHLORIDE 111 mmol/L (98-107); CREATININE 0.5 mg/dL (0.6-1.3); GLUCOSE 162 mg/dL (74-106); PHOSPHORUS 2.7 mg/dL (2.5-4.9); POTASSIUM 4.3 mmol/L (3.5-5.1); SODIUM SERUM 141 mmol/L (136-145); UREA NITROGEN, BLOOD 19 mg/dL (7-18)
[2018-02-02 07:51] LABS: BASOPHILS % (AUTO) 0.1 % (0.0-2.0); EOSINOPHILS % (AUTO) 0.9 % (0.0-6.0); HEMATOCRIT 33 % (33-45); HEMOGLOBIN 10.5 g/dL (11.5-14.8); LYMPHOCYTES # (AUTO) 2.1 /CMM (0.8-4.8); LYMPHOCYTES % (AUTO) 29.9 % (20.0-44.0); MEAN CORPUSCULAR HEMOGLOBIN 32 PG (26.0-33.0); MEAN CORPUSCULAR HGB CONC 32 g/dl (31.0-36.0); MEAN CORPUSCULAR VOLUME 99 fL (82-100); MONOCYTES # (AUTO) 0.6 /CMM (0.1-1.30); MONOCYTES % (AUTO) 9.2 % (2.0-12.0); NEUTROPHILS # (AUTO) 4.1 /CMM (1.8-8.9); NEUTROPHILS % (AUTO) 59.9 % (43.0-81.0); PLATELET COUNT (AUTO) 193 /CMM (150-450); RED BLOOD CELL COUNT(AUTO) 3.32 MIL/uL (4.0-5.2); WHITE BLOOD COUNT (AUTO) 6.9 K/uL (4.3-11.0)
[2018-02-02 08:00] VITALS: BP_SYST 110; BP_SYST 119; BP_DIAS 48
[2018-02-02] MEDS: BLOOD SUGAR DIAGNOSTIC 1 EACH STRIP VI SCH ×4 (08:07→21:46)
[2018-02-02] MEDS: INSULIN REGULAR, HUMAN 100 UNIT/ML 3 ML VIAL SQ PRN ×3 (08:18→17:32)
[2018-02-02] MEDS: ALLOPURINOL 100 MG TABLET PO SCH (08:54)
[2018-02-02] MEDS: MEMANTINE HCL 5 MG TABLET PO SCH ×2 (08:54→17:26)
[2018-02-02] MEDS: PANTOPRAZOLE 40 MG TABLET.DR PO SCH (08:54)
[2018-02-02] MEDS: METHIMAZOLE (5MG) 5 MG TABLET PO SCH (08:54)
[2018-02-02] MEDS: EZETIMIBE 10 MG TABLET PO SCH (08:54)
[2018-02-02] MEDS: METOPROLOL TARTRATE 50 MG TABLET PO SCH ×2 (08:56→21:00)
--- NOTE | 2018-02-02 09:00 | NUR ---
RN NOTES LEFT HAND 18G IV LINE IS INFILTRATED AND REMOVED. CHARGE NURSE NOTIFIED, MIDLINE ORDER IN PLACE, WAITING MIDLINE NURSE TO START MIDLINE.
[2018-02-02] MEDS: VANCOMYCIN 1 GM in IV NS 0.9% 250 ML IV SCH ×2 (10:12→21:38)
--- NOTE | 2018-02-02 10:15 | NUR ---
REAL RN NOTES PATIENT IS BEING DOWNGRADED TO MED SURGE BY MD ORDER.
--- NOTE | 2018-02-02 11:08 | NUR ---
TRIED PERIPHERAL IV 3X UNSUCCESSFUL,ON VANCO,NOTIFIED MD ORDERED MIDLINE,SG SUP MADE AWARE,AWAITS MIDLINE.
--- NOTE | 2018-02-02 13:06 | NUR ---
RN NOTES MIDLINE IS INSERTED ON LEFT BASILIC 5F 18G.
[2018-02-02 16:00] VITALS: BP 119/57
--- NOTE | 2018-02-02 19:00 | NUR ---
REAL RN NOTES PATIENT IS IN BED, A/OX1, CONFUSED, IN STABLE CONDITION, HR-70'S, B/P-119/57 , ON NC 2L O2 WITH SPO2 OF 100%. LEFT BASILIC MIDLINE IS PATIENT, INTACT, FLASHED. ALL NEEDS ARE ATTENDED, ALL SAFETY MEASURES ARE IMPLEMENTED, BED IN LOW, LOCKED POSITION, CALL LIGHT IN REACH AND TEACHING PROVIDED IN HER [place] LANGUAGE. PATIENT CARE WILL BE ENDORSED TO PM NURSE FOR PAYROLL TAX ANALYST.
--- NOTE | 2018-02-02 19:00 | NUR ---
MS RN OPENING NOTE RECEIVE PATIENT AWAKE IN BED, A/O X 1, CONFUSED, NO SOB OR DISTRESS NOTED, CALL LIGHT WITHIN REACH. SAFETY MEASURES IMPLEMENTED. WILL CONTINUE TO MONITOR THROUGHOUT SHIFT
--- NOTE | 2018-02-02 19:00 | NUR ---
MS RN OPENING NOTE RECEIVE PATIENT AWAKE IN BED, A/O X1, NO SOB OR DISTRESS NOTED, CALL LIGHT WITHIN REACH. SAFETY MEASURES IMPLEMENTED. WILL CONTINUE TO MONITOR THROUGHOUT SHIFT
[2018-02-02 20:00] VITALS: BP 104/50
[2018-02-02] MEDS: ATORVASTATIN 40 MG TABLET PO SCH (21:40)
[2018-02-02] MEDS: *INSULIN REGULAR(HUMULIN R)HUM 100 UNIT/ML VIAL SQ PRN (21:47)
[2018-02-03 04:00] VITALS: BP 118/54
--- NOTE | 2018-02-03 06:15 | NUR ---
MS RN CLOSING NOTES PT COMFORTABLY ASLEEP AND EASILY AWAKEN, STABLE, 2LPM VIA NC O2 SAT AT 95%, NOT IN DISTRESS. RESPIRATION EVEN AND UNLABORED. KEPT CLEAN AND DRY AND COMFORTABLE, ALL NURSING CARE RENDERED. NEEDS ATTENDED AND ANTICIPATED, NO FACIAL GRIMACING NOTED. NO COMPLAIN OF PAIN. GOOD SKIN CARE PROVIDED. ASSISTED REPOSITION EVERY 2 HOURS. ON LOW BED AT ALL TIMES TO ENSURE SAFETY. SAFE HAZARD FREE ENVIRONMENT PROVIDED. CALL LIGHT WITHIN EASY TO REACH. WILL ENDORSE NEXT SHIFT CONTINUITY OF CARE.
[2018-02-03 08:00] VITALS: BP 124/58
[2018-02-03] MEDS: EZETIMIBE 10 MG TABLET PO SCH (08:30)
[2018-02-03] MEDS: LEVOFLOXACIN (500MG) 500 MG TABLET PO SCH (08:30)
[2018-02-03] MEDS: METOPROLOL TARTRATE 50 MG TABLET PO SCH ×2 (08:30→20:09)
[2018-02-03] MEDS: BLOOD SUGAR DIAGNOSTIC 1 EACH STRIP VI SCH ×4 (08:30→22:56)
[2018-02-03] MEDS: MEMANTINE HCL 5 MG TABLET PO SCH ×2 (08:30→16:47)
[2018-02-03] MEDS: METHIMAZOLE (5MG) 5 MG TABLET PO SCH (08:30)
[2018-02-03] MEDS: PANTOPRAZOLE 40 MG TABLET.DR PO SCH (08:30)
[2018-02-03] MEDS: ALLOPURINOL 100 MG TABLET PO SCH (08:30)
[2018-02-03] MEDS: INSULIN REGULAR, HUMAN 100 UNIT/ML 3 ML VIAL SQ PRN ×3 (08:33→16:50)
[2018-02-03 09:31] LABS: BASOPHILS % (AUTO) 0.3 % (0.0-2.0); EOSINOPHILS % (AUTO) 0.5 % (0.0-6.0); HEMATOCRIT 30 % (33-45); HEMOGLOBIN 9.6 g/dL (11.5-14.8); LYMPHOCYTES % (AUTO) 28.6 % (20.0-44.0); MEAN CORPUSCULAR HEMOGLOBIN 31 PG (26.0-33.0); MEAN CORPUSCULAR HGB CONC 32 g/dl (31.0-36.0); MEAN CORPUSCULAR VOLUME 98 fL (82-100); MONOCYTES # (AUTO) 0.6 /CMM (0.1-1.30); MONOCYTES % (AUTO) 8.3 % (2.0-12.0); NEUTROPHILS # (AUTO) 4.5 /CMM (1.8-8.9); NEUTROPHILS % (AUTO) 62.3 % (43.0-81.0); PLATELET COUNT (AUTO) 198 /CMM (150-450); RDW COEFFICIENT OF VARIATION 17.7 (11.5-15.0); RED BLOOD CELL COUNT(AUTO) 3.09 MIL/uL (4.0-5.2); WHITE BLOOD COUNT (AUTO) 7.2 K/uL (4.3-11.0)
[2018-02-03 09:46] LABS: CALCIUM, SERUM 7.1 mg/dL (8.5-10.1); CARBON DIOXIDE 27 mmol/L (21-32); CHLORIDE 112 mmol/L (98-107); CREATININE 0.6 mg/dL (0.6-1.3); GLUCOSE 191 mg/dL (74-106); MAGNESIUM 1.8 mg/dL (1.8-2.4); PHOSPHORUS 2.7 mg/dL (2.5-4.9); POTASSIUM 3.4 mmol/L (3.5-5.1); SODIUM SERUM 143 mmol/L (136-145); UREA NITROGEN, BLOOD 13 mg/dL (7-18)
[2018-02-03] MEDS: VANCOMYCIN 1 GM in IV NS 0.9% 250 ML IV SCH ×2 (09:56→22:56)
[2018-02-03] MEDS ORDERED: POTASSIUM CHLORIDE 20 MEQ TAB.PRT.SR PO ONE (12:00)
[2018-02-03] MEDS ORDERED: POTASSIUM CHLORIDE 20 MEQ POWDER PACKET PO ONE (12:30)
[2018-02-03 16:00] VITALS: BP 120/68
[2018-02-03] MEDS: FLUCONAZOLE IN NS,PREMIX 400 MG in PREMIX 1 EA IV SCH ×2 (16:47)
[2018-02-03 20:00] VITALS: BP 141/75
--- NOTE | 2018-02-03 20:00 | NUR ---
REAL RN NOTES RECEIVED PATIENT IN BED, FAMILY MEMBERS AT BEDSIDE, PATIENT IS A/OX1, CONFUSED,TURKMEN SPEAKING, IN STABLE CONDITION,ON NC 2L O2 WITH SPO2 OF 99%, NO SOB , NO PAIN AT THIS TIME. LEFT BASILIC MIDLINE IN PLACE. ALL NEEDS ARE ATTENDED, ALL SAFETY MEASURES ARE IMPLEMENTED, BED IN LOW, LOCKED POSITION, CALL LIGHT IN REACH AND TEACHING PROVIDED IN HER [place] LANGUAGE. WILL CONT. TO MONITOR.
[2018-02-03] MEDS: ATORVASTATIN 40 MG TABLET PO SCH (22:56)
[2018-02-03] MEDS: *INSULIN REGULAR(HUMULIN R)HUM 100 UNIT/ML VIAL SQ PRN (23:06)
[2018-02-04] MEDS: Z GUARD REMEDY 2 OZ OINT TP PRN (03:03)
[2018-02-04 04:00] VITALS: BP 95/50
--- NOTE | 2018-02-04 06:00 | NUR ---
REAL RN NOTES PATIENT IS IN BED, A/OX1, CONFUSED, IN STABLE CONDITION, ON NC 2L O2 WITH SPO2 OF 99%. LEFT BASILIC MIDLINE IS LEAKING AND NEW IV LINE ON LEFT FOREARM 24G STARTED, PATIENT, INTACT . ALL NEEDS ARE ATTENDED, ALL SAFETY MEASURES ARE IMPLEMENTED, BED IN LOW, LOCKED POSITION, CALL LIGHT IN REACH AND TEACHING PROVIDED IN HER [place] LANGUAGE. PATIENT CARE WILL BE ENDORSED TO AM NURSE FOR ELECTRICAL SYSTEMS DESIGN ENGINEER.
[2018-02-04 07:22] LABS: CALCIUM, SERUM 7.5 mg/dL (8.5-10.1); CARBON DIOXIDE 28 mmol/L (21-32); CHLORIDE 112 mmol/L (98-107); CREATININE 0.5 mg/dL (0.6-1.3); GLUCOSE 179 mg/dL (74-106); POTASSIUM 4.1 mmol/L (3.5-5.1); SODIUM SERUM 143 mmol/L (136-145); UREA NITROGEN, BLOOD 9 mg/dL (7-18)
--- NOTE | 2018-02-04 07:30 | NUR ---
MEDICAL SURGICAL TECH INITIAL NOTES RECEIVED PATIENT IN BED, NO SIGNS OF DISTRESS, AOX1, MALTESE SPEAKING CONFUSED, 2L NC SATURATING WELL, IV LFA 24G, CLEAN AND PATENT, BED IN LOW AND LOCKED POSITION, CALL LIGHT WITHIN REACH, WILL CONTINUE TO MONITOR.
[2018-02-04] MEDS: BLOOD SUGAR DIAGNOSTIC 1 EACH STRIP VI SCH ×4 (07:51→21:30)
[2018-02-04] MEDS: INSULIN REGULAR, HUMAN 100 UNIT/ML 3 ML VIAL SQ PRN ×3 (07:57→17:35)
[2018-02-04 08:00] VITALS: BP 131/60
[2018-02-04] MEDS: MEMANTINE HCL 5 MG TABLET PO SCH ×2 (09:54→17:17)
[2018-02-04] MEDS: PANTOPRAZOLE 40 MG TABLET.DR PO SCH (09:54)
[2018-02-04] MEDS: ALLOPURINOL 100 MG TABLET PO SCH (09:54)
[2018-02-04] MEDS: METHIMAZOLE (5MG) 5 MG TABLET PO SCH (09:54)
[2018-02-04] MEDS: EZETIMIBE 10 MG TABLET PO SCH (09:54)
[2018-02-04] MEDS: METOPROLOL TARTRATE 50 MG TABLET PO SCH ×2 (09:55→21:27)
[2018-02-04] MEDS: LEVOFLOXACIN (500MG) 500 MG TABLET PO SCH (09:55)
[2018-02-04] MEDS: VANCOMYCIN 1 GM in IV NS 0.9% 250 ML IV SCH (09:57)
[2018-02-04] MEDS: FLUCONAZOLE IN NS,PREMIX 400 MG in PREMIX 1 EA IV SCH ×2 (15:55)
[2018-02-04 16:00] VITALS: BP_SYST 109; BP_DIAS 34; BP_DIAS 69
--- NOTE | 2018-02-04 18:49 | NUR ---
DUMP GRADER END NOTES PATIENT RESTING IN BED, ALL NEEDS ADDRESS, DAUGHTER AT BEDSIDE. WILL ENDORSE TO ASSISTANT PROSECUTING ATTORNEY FOR CONTINUITY OF CARE.
--- NOTE | 2018-02-04 19:30 | NUR ---
RN/ MS NOTES: RECEIVED PT. IN BED W/ HOB ELEVATED. NO FACIAL GRIMACES OR MOANING NOTED. ALERT TO NAME. MONTSERRATIAN SPEAKING ONLY. W/ O2 @ 2LPM VIA N/C SAT. 98%. INCONTINENT CARE RENDERED. PT. HAS TERRY MIDLINE NOT FUNCTIONING WELL. HAS LFA G 24 PATENT AND INTACT W/ NO S/S OF INFECTION /INFILTRATION NOTED. WILL CONTINUE TO MONITOR .
[2018-02-04 20:00] VITALS: BP 139/52
[2018-02-04] MEDS: ATORVASTATIN 40 MG TABLET PO SCH (21:26)
[2018-02-04] MEDS: *INSULIN REGULAR(HUMULIN R)HUM 100 UNIT/ML VIAL SQ PRN (21:36)
[2018-02-05 04:00] VITALS: BP 159/84
[2018-02-05 06:37] LABS: BASOPHILS % (AUTO) 0.4 % (0.0-2.0); HEMATOCRIT 29 % (33-45); HEMOGLOBIN 9.2 g/dL (11.5-14.8); LYMPHOCYTES # (AUTO) 2.6 /CMM (0.8-4.8); LYMPHOCYTES % (AUTO) 33.7 % (20.0-44.0); MEAN CORPUSCULAR HEMOGLOBIN 31 PG (26.0-33.0); MEAN CORPUSCULAR HGB CONC 32 g/dl (31.0-36.0); MEAN CORPUSCULAR VOLUME 97 fL (82-100); MONOCYTES # (AUTO) 0.9 /CMM (0.1-1.30); MONOCYTES % (AUTO) 11.8 % (2.0-12.0); NEUTROPHILS # (AUTO) 4.1 /CMM (1.8-8.9); NEUTROPHILS % (AUTO) 53.1 % (43.0-81.0); PLATELET COUNT (AUTO) 205 /CMM (150-450); RDW COEFFICIENT OF VARIATION 17.4 (11.5-15.0); RED BLOOD CELL COUNT(AUTO) 2.98 MIL/uL (4.0-5.2); WHITE BLOOD COUNT (AUTO) 7.7 K/uL (4.3-11.0)
[2018-02-05 06:43] LABS: CALCIUM, SERUM 7.7 mg/dL (8.5-10.1); CARBON DIOXIDE 29 mmol/L (21-32); CHLORIDE 112 mmol/L (98-107); CREATININE 0.5 mg/dL (0.6-1.3); GLUCOSE 179 mg/dL (74-106); POTASSIUM 3.7 mmol/L (3.5-5.1); SODIUM SERUM 143 mmol/L (136-145); UREA NITROGEN, BLOOD 8 mg/dL (7-18)
--- NOTE | 2018-02-05 07:03 | NUR ---
MS/NOTES: REPORT GIVEN TO AM SHIFT NURSE FOR SUSANNA.
--- NOTE | 2018-02-05 07:10 | NUR ---
MS RN NOTE PATIENT IN BED, RESTING COMFORTABLY , ON 2L NC, NO SOB NOTED , LT FA HL INTACT , BED IN LOWEST AND LOCKED POSITION , CALL LIGHT WITHIN REACH , NO SOB NOTED RESPIRATION EVEN NONLABORED , ALL NEEDS ATTENDED ,WILL CONT TO MONITOR CLOSELY
[2018-02-05 08:00] VITALS: BP 133/63
[2018-02-05] MEDS: MEMANTINE HCL 5 MG TABLET PO SCH ×2 (08:23→16:26)
[2018-02-05] MEDS: EZETIMIBE 10 MG TABLET PO SCH (08:24)
[2018-02-05] MEDS: ALLOPURINOL 100 MG TABLET PO SCH (08:24)
[2018-02-05] MEDS: METOPROLOL TARTRATE 50 MG TABLET PO SCH (08:24)
[2018-02-05] MEDS: PANTOPRAZOLE 40 MG TABLET.DR PO SCH (08:24)
[2018-02-05] MEDS: METHIMAZOLE (5MG) 5 MG TABLET PO SCH (08:25)
[2018-02-05] MEDS: LEVOFLOXACIN (500MG) 500 MG TABLET PO SCH (08:26)
[2018-02-05] MEDS: INSULIN REGULAR, HUMAN 100 UNIT/ML 3 ML VIAL SQ PRN ×2 (08:28→12:09)
[2018-02-05] MEDS: BLOOD SUGAR DIAGNOSTIC 1 EACH STRIP VI SCH ×2 (08:33→11:22)
--- NOTE | 2018-02-05 08:46 | NUR ---
MS RN NOTE VANCO TROUGH DONE ORDERED BY FISHER DIP NET, PLACED ON RA BY RT ,WILL DO ABG , FED BY PRODUCT MANUFACTURING PROFESSIONAL ,ATE 75% OF DIET , KEEP CLEAN DRY , ALL NEEDS ATTENDED
[2018-02-05 08:59] LABS: ABG BASE EXCESS 1.3 mmol/L; ABG OXYGEN SATURATION 92.2 % (92.0-98.5); ABG PCO2 36.6 mmHg (35.0-45.0); ABG PH 7.454 (7.350-7.450); ABG PO2 65.6 mmHg (75.0-100.0); AaDO2 40.3 mmHg; MetHb 0.3 % (0.0-1.5); O2Hb 91.9 % (94.0-97.0); SITE, ABG Right Radial; VENT MODE, BG ROOM AIR
--- NOTE | 2018-02-05 09:25 | NUR ---
MS RN NOTE SEEN BY DR HEART NOTIFIED RESULT OF AB BG STATED ITS OK NO NEW ORDER AT THIS TIME, WILL F\U
--- NOTE | 2018-02-05 10:34 | NUR ---
MS RN NOTE SEEN BY PT ,ABLE TO SIT AT EDGE OF BED ,NEEDS MAX ASSISTANCE
--- NOTE | 2018-02-05 12:13 | NUR ---
ms rn not e seen by lesa zavaleta rn automotive leasing sales representative with possible to d\c to snf , will f\u
[2018-02-05] MEDS ORDERED: LEVO500T2 PO (13:13)
[2018-02-05] MEDS ORDERED: FLUC200T8 PO (13:13)
--- NOTE | 2018-02-05 13:53 | NUR ---
TRANSPORTATION MANAGER NOTE CALLED TO SNF SPOKE WITH ITZEL YU REPORT GIVEN
--- NOTE | 2018-02-05 14:14 | NUR ---
MS RN NOTE PICC LINE ON LT UPPER ARM REMOVED, KEEP PRESSIE DRESSING X 5 MIN , NO SOB NOTED, NO ACTIVE BLEEDING NOTED , WILL CONT TO MONITOR CLOSELY
[2018-02-05] MEDS: FLUCONAZOLE IN NS,PREMIX 400 MG in PREMIX 1 EA IV SCH ×2 (15:22)
--- NOTE | 2018-02-05 15:33 | NUR ---
MS YU NOTE CALLED TO JACKELIN DAVIS NOTIFIED THAT PATINT WILL BE DISCHARGE TO [facility] , AGREE TO GO ,DIE BAKER AWARE Addendum: 02/05/18 at 1702 by AVERY AMADOR RN CORRECTION GOING TO [facility]
[2018-02-05 16:00] VITALS: BP 137/59
--- NOTE | 2018-02-05 17:02 | NUR ---
MS RN NOTE AMBULANCE ARRIVED , REPORT GIVEN, HL IN LT FA REMOVED ,NO BLEEDING ,NO S\S INFECTION NOTED ,
--- NOTE | 2018-02-05 17:06 | NUR ---
MS RN NOTE TAKEN TO SNF BY AMBULANCE WITH STABLE CONDITION
== END 2018-02-05 17:06 | DRG 871 ==
LOC: ER 22:49 → TELE1 01-31 01:07 → MEDSG1 02-02 10:05
PROVIDERS: ADMIT Internal Medicine; ATTEND Internal Medicine
PROC: 05H633Z Insertion of Infusion Device into Left Subclavian Vein, Percutaneous Approach (ICD-10-PCS; principal; 2018-02-02)
PROC: B547ZZA Ultrasonography of Left Subclavian Vein, Guidance (ICD-10-PCS; 2018-02-02)
DX: A41.9 Sepsis, unspecified organism (principal); G92 Toxic encephalopathy; N39.0 Urinary tract infection, site not specified; E87.1 Hypo-osmolality and hyponatremia; J98.11 Atelectasis; I50.32 Chronic diastolic (congestive) heart failure; E11.9 Type 2 diabetes mellitus without complications; Z86.73 Personal history of transient ischemic attack (TIA), and cerebral infarction without residual deficits; I25.10 Atherosclerotic heart disease of native coronary artery without angina pectoris; I11.0 Hypertensive heart disease with heart failure; D64.9 Anemia, unspecified; E05.90 Thyrotoxicosis, unspecified without thyrotoxic crisis or storm; E78.5 Hyperlipidemia, unspecified; Z95.5 Presence of coronary angioplasty implant and graft; Z87.440 Personal history of urinary (tract) infections; Z79.899 Other long term (current) drug therapy; Z79.4 Long term (current) use of insulin; Z79.84 Long term (current) use of oral hypoglycemic drugs; E87.6 Hypokalemia; E86.0 Dehydration; E03.9 Hypothyroidism, unspecified; M10.9 Gout, unspecified; F03.90 Unspecified dementia, unspecified severity, without behavioral disturbance, psychotic disturbance, mood disturbance, and anxiety; R65.20 Severe sepsis without septic shock; L89.150 Pressure ulcer of sacral region, unstageable; S40.212A Abrasion of left shoulder, initial encounter; S51.811A Laceration without foreign body of right forearm, initial encounter; S80.211A Abrasion, right knee, initial encounter; X58.XXXA Exposure to other specified factors, initial encounter; Y92.129 Unspecified place in nursing home as the place of occurrence of the external cause; R09.02 Hypoxemia; E66.9 Obesity, unspecified; Z68.27 Body mass index [BMI] 27.0-27.9, adult; B96.89 Other specified bacterial agents as the cause of diseases classified elsewhere; D63.8 Anemia in other chronic diseases classified elsewhere
CPT/HCPCS: 36415; 36600; 70450-TC; 71045-TC; 80048-TC; 80202-TC; 81000-TC; 82247-TC; 82248-TC; 82803-TC; 82962-TC; 83605-TC; 83735-TC; 83880; 84100-TC; 84484-TC; 85025-TC; 87040-TC; 87081-TC; 87086-TC; 97110-TC; 97530-TC; A4216; A4606; A6402; A6403; C1751; J1450; J1815; J1956; J3370; J3480; J3490; J7030; J7040; J7050; Z7610

== ENCOUNTER 2018-07-21 03:05 | Inpatient (IN) | payer MEDICARE, OTHER ==
[2018-07-21] VITALS (7 sets, daily range): BP systolic 90–154; BP diastolic 46–67
[~2018-07-21] VITALS: Ht 165.1 cm; Wt 68.0 kg
[~2018-07-21 03:05] MED LIST changes: +ACET-2605 PO; +ACET-868 PO; +AMIN30LI4 PO; -AMPI250C13 PO; +ASCO500T9 PO; +BISA10SU8 RC; +BLOO-668 IN; -EZET10TA14 PO; +FERR325T23 PO; -FESO8TAB PO; -INSU100V11 SQ; +MAGN400O6 PO; +MULT-447 PO; +NA P133E RC; +POTA20TA83 PO; -ROSU20TA PO; -TICA90TA PO; +TRAM50TA2 PO; -TRIH2TAB3 PO; -VALS160T29 PO; +ZINC220C8 PO
--- NOTE | 2018-07-21 03:12 | NUR ---
PT BIB RA FROM HOME WITH A C/O N/V VOLUNTEER SERVICES MANAGER. PT IS WARM TO TOUCH, TACHY ON THE MONITOR, RESP 24, O2 SAT IS 90% ON RA. PT PLACED ON 2L O2 VIA NC. PT IS NOW 95%. PT IS NICARAGUAN SPEAKING ONLY. PT'S SON TO COME LATER. PT HAS A MARCUS TO GRAVITY VOLUNTEER SERVICES MANAGER. PT HAS A 20G IV VOLUNTEER SERVICES MANAGER. BLOOD WAS DRAWN AND SENT TO LAB. BLOOD CULTURES DRAWN.
[2018-07-21] MEDS ORDERED: IV NS 0.9% 1,000 ML BAG IV ONE (03:30)
[2018-07-21 03:49] LABS: APPEARANCE,URINE CLEAR (CLEAR); BILIRUBIN,URINE NEGATIVE (NEGATIVE); BLOOD, URINE 2+ Ery/uL (NEGATIVE); COLOR,URINE YELLOW (YELLOW); KETONES,URINE 1+ (NEGATIVE); LEUKOCYTE ESTERASE ,URINE 1+ (NEGATIVE); NITRITE, URINE NEGATIVE (NEGATIVE); PH,URINE 5.5 (5.0-8.0); PROTEIN,URINE TRACE mg/dl (NEGATIVE); UGLUCOSE 3+ mg/dL (NEGATIVE); UROBILINOGEN,URINE 0.2 EU/dL (0.2)
[2018-07-21 03:53] LABS: BASOPHILS # (AUTO) 0.1 /CMM (0.0-0.2); BASOPHILS % (AUTO) 0.7 % (0.0-2.0); HEMATOCRIT 37 % (33-45); HEMOGLOBIN 11.6 g/dL (11.5-14.8); LYMPHOCYTES # (AUTO) 0.4 /CMM (0.8-4.8); MEAN CORPUSCULAR HGB CONC 32 g/dl (31.0-36.0); MEAN CORPUSCULAR VOLUME 90 fL (82-100); MONOCYTES # (AUTO) 0.7 /CMM (0.1-1.30); MONOCYTES % (AUTO) 3.7 % (2.0-12.0); NEUTROPHILS # (AUTO) 17.6 /CMM (1.8-8.9); NEUTROPHILS % (AUTO) 93.6 % (43.0-81.0); PLATELET COUNT (AUTO) 159 /CMM (150-450); RED BLOOD CELL COUNT(AUTO) 4.08 MIL/uL (4.0-5.2); WHITE BLOOD COUNT (AUTO) 18.8 K/uL (4.3-11.0)
[2018-07-21 03:59] LABS: BACTERIA,URINE Few /HPF (None Seen); SQUAMOUS EPITHELIAL CELL,UR Few /HPF (None Seen)
[2018-07-21 04:06] LABS: ALANINE AMINOTRANSFERASE 16 U/L (12-78); ALBUMIN 2.3 g/dL (3.4-5.0); ALKALINE PHOSPHATASE 112 U/L (46-116); ASPARTATE AMINOTRANSFERASE 20 U/L (15-37); BILIRUBIN,DIRECT 0.3 mg/dL (0.0-0.2); BILIRUBIN,TOTAL 0.9 mg/dL (0.2-1.0); CALCIUM, SERUM 8.8 mg/dL (8.5-10.1); CARBON DIOXIDE 23 mmol/L (21-32); CHLORIDE 100 mmol/L (98-107); CREATININE 0.9 mg/dL (0.6-1.3); POTASSIUM 3.6 mmol/L (3.5-5.1); SODIUM SERUM 133 mmol/L (136-145); TOTAL PROTEIN, SERUM 6.6 g/dL (6.4-8.2); UREA NITROGEN, BLOOD 19 mg/dL (7-18)
[2018-07-21 04:08] LABS: GLUCOSE 467 mg/dL (74-106)
--- NOTE | 2018-07-21 04:11 | NUR ---
RECTAL TEMP TAKEN. 103.1F NOTIFIED.
--- NOTE | 2018-07-21 04:12 | NUR ---
PT IS GOING TO ROOM 107, TELE , ADMITTING Shivani ROSAS NP
[2018-07-21 04:16] LABS: BAND % (MANUAL) 5 % (0.0-5.0); LYMPHOCYTES % (MANUAL) 6 % (16-48); MONOCYTES % (MANUAL) 4 % (0-11.0); NEUTROPHILS % (MANUAL) 85 (42-76)
[2018-07-21] MEDS ORDERED: CEFEPIME 1 GM VIAL ONE (04:18)
[2018-07-21] MEDS ORDERED: VANCOMYCIN 1 GM VIAL ONE (04:19)
[2018-07-21] MEDS ORDERED: VANCOMYCIN 1 GM in IV D5W 250 ML IV ONE (04:30)
[2018-07-21] MEDS ORDERED: CEFEPIME 1 GM VIAL IV ONE (04:30)
[2018-07-21] MEDS ORDERED: ACETAMINOPHEN 650 MG/SUPP.RECT RC ONE ×2 (04:30)
--- NOTE | 2018-07-21 04:42 | NUR ---
REPORT GIVEN TO AIMEE INGRAM - TELE
--- NOTE | 2018-07-21 05:00 | NUR ---
PT LEFT FOR TELE VIA GURNEY PER PROTOCOL. VSS
--- NOTE | 2018-07-21 05:00 | NUR ---
VOICE SYSTEMS ENGINEER ADMITTING NOTE PT ADMITTED FROM ER, REPORT GIVEN BY MORAIMA, 78 YR OLD F ADMITTED FOR SEPSIS/ UTI/ HYPERGLYCEMIA, RECEIVIED ON GURNEY, ALERT CONFUSED, ON 2L NC, WITH RH#18G, WELL SECURED AND PATENT, SKIN ISSUES NOTED, PHOTOS FILED, F/U WITH ADMITTING, PROM BURN OFF OPERATOR ALISON, ORDERS ENTERED, WILL CONT' TO F/U WITH PT PLAN OF CARE, SAFETY MEASURES UNDERTAKEN.
[2018-07-21] MEDS ORDERED: FURO20TA4 PO (05:19)
[2018-07-21] MEDS ORDERED: ROSU20TA2 PO (05:19)
[2018-07-21] MEDS ORDERED: SPIR25TA6 PO (05:19)
[2018-07-21] MEDS ORDERED: METO25TA6 PO (05:19)
[2018-07-21] MEDS ORDERED: INSU100V11 SQ (05:19)
[2018-07-21] MEDS ORDERED: DEXTROSE 50%-WATER 50 ML DISP.SYRIN IV PRN ×3 (06:00→15:30)
[2018-07-21] MEDS ORDERED: BLOOD SUGAR DIAGNOSTIC 1 EACH STRIP IN SCH (06:00)
[2018-07-21] MEDS ORDERED: PIPERACILLIN /TAZOBACTAM 3.375 G in IV D5W 50 ML IV ONE (06:00)
[2018-07-21] MEDS ORDERED: INSULIN REGULAR, HUMAN 100 UNIT/ML 3 ML VIAL SQ PRN ×2 (06:00→09:00)
[2018-07-21] MEDS ORDERED: PIPERACILLIN /TAZOBACTAM 3.375 G in IV D5W 50 ML IV SCH (06:00)
[2018-07-21] MEDS ORDERED: ONDANSETRON HCL/PF 4 MG/2 ML VIAL IVP PRN (06:00)
[2018-07-21] MEDS ORDERED: HEPARIN SODIUM, PORCINE 5000 UNITS/1 ML VIAL SQ ONE (06:30)
--- NOTE | 2018-07-21 06:33 | NUR ---
END NOTE PT ENDORSED ASLEEP, ABLE TO REST, NO SOB OR GRIMANCING NOTED, MED LIST BROUGHT FROM ER LAST MINUTE AT 0630 AM WILL ENDORSE TO AM RN TO F/U W/ CONT' MEDS.
[2018-07-21] MEDS ORDERED: PIPERACILLIN /TAZOBACTAM 3.375 G VIAL IV ONE (06:38)
[2018-07-21] MEDS: IV NS 0.9% 1,000 ML IV PRN ×2 (06:54→23:33)
--- NOTE | 2018-07-21 07:19 | NUR ---
BS 417 COVERED 10 U PER SCALE CALLED MALLIKA ROSAS AWAITING CALL BACK, ENDORSED TO AM AIMEE VARELA TO F/U
[2018-07-21] MEDS ORDERED: ONDA4TAB5 PO (07:41)
--- NOTE | 2018-07-21 08:00 | NUR ---
MEAT CLERK NOTE RECEIVED PATIENT IN BED .ALERT WITH CONFUSING .SPEAKS WELSH AND PORTUGUESE , ON TELE MONITOR SR , WITH MARCUS CATH TO GRAVITY WITH YELLOW COLOR TEA COLOR URINE, RT HAND HL INTACT, BED IN LOWEST AND LOCKED POSITION , CALL LIGHT WITHIN REACH , ON IVF ORDERED, ALSO RECHECKED BLOOD SUGAR 1455 DR ORELLANA NOTIFIED WITH ORDER TO FO MODERATE SLIDING SCALE , ORDER CARRIED OUT Addendum: 07/21/18 at 1239 by AVERY AMADOR RN BLOOD SUGAR 455 MG\DL
[2018-07-21] MEDS: HEPARIN SODIUM, PORCINE 5000 UNITS/1 ML VIAL SQ SCH ×2 (08:28→18:00)
[2018-07-21] MEDS ORDERED: *INSULIN REGULAR(HUMULIN R)HUM 100 UNIT/ML VIAL SQ PRN (09:00)
[2018-07-21] MEDS: PIPERACILLIN /TAZOBACTAM 3.375 G in IV D5W 100 ML IV SCH ×2 (11:32→21:07)
[2018-07-21] MEDS ORDERED: BLOOD SUGAR DIAGNOSTIC 1 EACH STRIP VI SCH (12:00)
--- NOTE | 2018-07-21 12:00 | NUR ---
SALES REPRESENTATIVE SALES MANAGER NOTE BLOOD SUGAR 457 MG\DL ,PER MILD SLIDING SCALE GIVEN INSULIN COVERAGE DR REYNA BRANCH
--- NOTE | 2018-07-21 12:00 | NUR ---
TELE RNNNOTE BLOOD SUGAR 457 MG\ DL , 15 UNIT REGULAR INSULIN GIVEN ORDERED WITH MILD SLIDING SCALE PER ORDER DR ORELLANA , WILL F\U
[2018-07-21] MEDS: ACETAMINOPHEN 325 MG TABLET PO PRN ×2 (12:02→18:38)
--- NOTE | 2018-07-21 14:00 | NUR ---
HEALTH ECONOMIST NOTE RECHECKED BLOOD SUGAR ,530 MG\DL AFTER GIVEN 15 UNITS INSULIN AND ORDERED BLOOD GLUCOSE AND RESULT 569 MG\DL, CALLED TO DR REYNA ALANIS NO ORDER AT THIS TIME WILL COME TO SEE PATIENT SOON ,WILL F\U
[2018-07-21 14:05] LABS: CALCIUM, SERUM 7.6 mg/dL (8.5-10.1); CARBON DIOXIDE 24 mmol/L (21-32); CHLORIDE 105 mmol/L (98-107); CREATININE 0.9 mg/dL (0.6-1.3); POTASSIUM 3.8 mmol/L (3.5-5.1); SODIUM SERUM 135 mmol/L (136-145); UREA NITROGEN, BLOOD 18 mg/dL (7-18)
[2018-07-21 14:07] LABS: GLUCOSE 453 mg/dL (74-106)
[2018-07-21] MEDS: INSULIN GLARGINE, 100 UNIT/ML CARTRIDGE SQ SCH (15:30)
--- NOTE | 2018-07-21 15:34 | NUR ---
RUBBISH COLLECTION SUPERVISOR NOTE DR ORELLANA NOTIFIED THAT BLOOD SUGAR WAS EARLIER 596 MG\ DL AND FRONB ACCUCHECJ 530 MG\ DL ORDERED LANTUS 20 UNIS AND ORDERED AGGRESSIVE IN SLIDING ASCALE WILL F\U Addendum: 07/21/18 at 1537 by AVERY AMADOR RN FROM ACCU CHECK BLOOD SUGAR 530 MG\DL AND DR ORELLANA ORDERED AGGRESSIVE SLIDING SCALE WITH INSULIN
--- NOTE | 2018-07-21 15:35 | NUR ---
TRANSFUSION AIDE NOTE NOTIFIED TO DR ORELLANA THAT PER FAMILY WANTS TO HOLD ALL BLOOD THINNER MEDS DUE RO BLEEDING IN PAST STATED OK TO HOLD FOR NOW
--- NOTE | 2018-07-21 16:19 | NUR ---
CHEMIST INTERN NOTE PLACED [facility] ORDERED
[2018-07-21] MEDS: BLOOD SUGAR DIAGNOSTIC 1 EACH STRIP IN SCH ×2 (17:41→21:10)
[2018-07-21] MEDS: INSULIN REGULAR, HUMAN 100 UNIT/ML 3 ML VIAL SQ PRN (17:44)
--- NOTE | 2018-07-21 18:00 | NUR ---
DENNISE YU NNOTE BLOOD SUGAR STILL HIGH 600 MG\DL GIVEN 20 UNITS INSULIN PER SLIDING SCALE AGGRESSIVE ORDERED BY DR ORELLANA
--- NOTE | 2018-07-21 18:15 | NUR ---
CHECK WEIGHER NOTE RECHECK BLOOD SUGAR 402 MG\DL STILL HIGH CALLED TO DR ORELLANA ORDERED BOLUS NS 1L AND STAT ACETONE LEVEL NOTIFIED THAT BP 92/[address]
[2018-07-21] MEDS ORDERED: IV NS 0.9% 1,000 ML IV PRN (18:30)
--- NOTE | 2018-07-21 18:41 | NUR ---
DENNISE YU NNOTE T 100.0 ,TYLENOL GIVEN ,ON IVF BOLUS AT THIS TIME, BP 165/69M SAT 100% ON 2L NC , HR STILL 138 WILL CONT TO MONITOR CLOSELY Addendum: 07/21/18 at 1852 by AVERY AMADOR RN ON TELE MONITOR AT ST HR 127 , ALL NEEDS ATTENDED AWAITING FOR ACETONE LEVEL
--- NOTE | 2018-07-21 19:18 | NUR ---
GEAR REPAIRER NOTE ST HR 127 ON TELE AT THIS TIME, WILL CONT TO GIVE BOLUS IV AND WILL ENDORSE CARE NEXT SHIFT RN CALLED AGAINE TO DR ORELLANA WITH POSSIBLE TRANSFER TO [facility] ACETONE LEVEL STILL PENDING Addendum: 07/21/18 at 1923 by AVERY AMADOR RN ON TELE MONITOR WITH PVC AT THIS TIME WITH FREQUENT PVC AWAITING RETURN FROM DR ORELLANA, WILL F\U
--- NOTE | 2018-07-21 19:50 | NUR ---
RN NOTES RECEIVED PT AWAKE AOX1 , CONFUSED.. NO ACUTE RESPIRATORY DISTRESS. WARM TO TOUCH TEMP 99.7. ST ON TELE MONITOR HR 117. UNABLE TO VERBALIZED PAIN. IV SITE ON RIGHT HAND G 18 WITH BOLUS TO CONSUME AND IVF OF 100 ML/HR INTACT AND PATENT. WITH STRONG RADIAL PULSES AND A WEAK PEDAL PULSE. OFFLOADED EXT WITH PILLOWS TURNED AND REPOSITIONED PATIENT FOR SKIN MANAGEMENT. KEPT PT CLEAN AND DRY. COOLING MEASURES PROVIDED. CONTINUE TO MONITOR BLOOD SUGAR ORDERED. NO SIGNIFICANT S/S NOTED AT THIS TIME WILL CONTINUE TO MONITOR.
[2018-07-21] MEDS: *INSULIN REGULAR(HUMULIN R)HUM 100 UNIT/ML VIAL SQ PRN (21:16)
[2018-07-21] MEDS: HYDROCODONE/APAP 5/325MG 1 EACH TABLET PO PRN (21:19)
[2018-07-21] MEDS: ZOLPIDEM TARTRATE 5 MG TABLET PO PRN (23:13)
[2018-07-22] VITALS: BP 101/46
[2018-07-22] MEDS: PIPERACILLIN /TAZOBACTAM 3.375 G in IV D5W 100 ML IV SCH ×3 (03:48→20:20)
[2018-07-22 04:00] VITALS: BP 106/45
--- NOTE | 2018-07-22 05:59 | NUR ---
RN NOTES PATIENT ASLEEP WELL ON BED. BREATHING EVEN AND UNLABORED. WITH O2 2LPM VIA NC SATURATION 96%. AFEBRILE. NO COMPLAINED OF PAIN AT THIS TIME. PAIN MEDICINE EFFECTIVE. NO SIGNIFICANT CHANGES PRESENT. NSR ON TELE MONITOR. IV SITE NO CHANGE STILL RUNNING WITH IVF NS @ 100 ML/HR TOLERATED WELL. F/C DRAINED WITH YELLOW COLOR URINE WITH ADEQ. OUTPUT. KEPT PT CLEAN AND COMFORTABLE IN BED. WILL ENDORSED CONTINUITY OF CARE TO AM NURSE.
[2018-07-22] MEDS: HEPARIN SODIUM, PORCINE 5000 UNITS/1 ML VIAL SQ SCH ×2 (06:00→17:07)
[2018-07-22 06:45] LABS: BASOPHILS % (AUTO) 0.1 % (0.0-2.0); EOSINOPHILS % (AUTO) 0.1 % (0.0-6.0); HEMATOCRIT 32 % (33-45); HEMOGLOBIN 10.1 g/dL (11.5-14.8); LYMPHOCYTES # (AUTO) 0.8 /CMM (0.8-4.8); MEAN CORPUSCULAR HGB CONC 32 g/dl (31.0-36.0); MEAN CORPUSCULAR VOLUME 90 fL (82-100); MONOCYTES # (AUTO) 1.2 /CMM (0.1-1.30); MONOCYTES % (AUTO) 10.5 % (2.0-12.0); NEUTROPHILS % (AUTO) 82.3 % (43.0-81.0); PLATELET COUNT (AUTO) 125 /CMM (150-450); RED BLOOD CELL COUNT(AUTO) 3.52 MIL/uL (4.0-5.2)
[2018-07-22 06:48] LABS: CALCIUM, SERUM 7.7 mg/dL (8.5-10.1); CARBON DIOXIDE 24 mmol/L (21-32); CHLORIDE 108 mmol/L (98-107); CREATININE 0.8 mg/dL (0.6-1.3); GLUCOSE 324 mg/dL (74-106); MAGNESIUM 1.3 mg/dL (1.8-2.4); PHOSPHORUS 2.9 mg/dL (2.5-4.9); POTASSIUM 4.3 mmol/L (3.5-5.1); SODIUM SERUM 139 mmol/L (136-145); UREA NITROGEN, BLOOD 21 mg/dL (7-18)
[2018-07-22 07:33] LABS: CHOLESTEROL 85 mg/dL (<200); HDL CHOLESTEROL 30 mg/dL (40-60); LDL 48 mg/dL (0-99); TRIGLYCERIDES 92 mg/dL (30-150)
--- NOTE | 2018-07-22 07:59 | NUR ---
RN AM SHIFT NOTE RECEIVED PATIENT FROM NIGHT NURSE, ALERT AND ORIENTED TO NAME AND LOCATION, A&OX2. ITALIAN SPEAKING, 16 GAUGE IV PATENT AND INTACT, BED LOW TO GROUND, MARCUS CATH PATENT AND DRAING WELL. FOLLOW UP WITH FAMILY PER NIGHT NURSE REGARING THE NEED FOR LOVENOX INJECTIONS; FAMILY IS REQUESTING THEY ARE STOPPED PT HAS HISTORY OF DVT, CALLL LIGHT WITHIN REACH SAFETY MEASURES IN PLACE, BED IN LOW POSITION, SIDE RAILS UP
[2018-07-22 08:00] VITALS: BP_SYST 152; BP_DIAS 64; BP_DIAS 69
[2018-07-22] MEDS: Z GUARD REMEDY 2 OZ OINT TP SCH (09:02)
[2018-07-22] MEDS: BLOOD SUGAR DIAGNOSTIC 1 EACH STRIP IN SCH ×4 (09:06→22:57)
--- NOTE | 2018-07-22 09:30 | NUR ---
RN Note Dr Angeles notified about pt having frequent PVCs, every third beat, rate of 105 on telemetry, no new orders for this occasion. also notified about low magnesium level, and he ordered to replace with 2 gm iv. will follow through. safety measures in place. call light within reach. pt aox2, vs stable. co pain in the back. pt repositioned.
[2018-07-22] MEDS: INSULIN REGULAR, HUMAN 100 UNIT/ML 3 ML VIAL SQ PRN ×4 (09:33→22:58)
[2018-07-22] MEDS: INSULIN GLARGINE, 100 UNIT/ML CARTRIDGE SQ SCH (09:34)
[2018-07-22] MEDS: Magnesium 1GM/D5W 100ML PREMIX 100 ML IV SCH ×2 (09:57→11:19)
[2018-07-22] MEDS: IV NS 0.9% 1,000 ML IV PRN (09:59)
[2018-07-22] MEDS ORDERED: Magnesium 1GM/D5W 100ML PREMIX PIGGYBACK IV ONE (10:00)
[2018-07-22 12:00] VITALS: BP 106/70
--- NOTE | 2018-07-22 12:12 | NUR ---
CHARGE NOTES DC TELEMETRY PER DR. MCQUEEN
[2018-07-22] MEDS ORDERED: LIDOCAINE 2%-EPI 1:100,000 30 ML VIAL TP ONE (12:30)
[2018-07-22] MEDS ORDERED: SILVER NITRATE APPLICATOR 1 EA BOX TP ONE (12:30)
[2018-07-22] MEDS: DAKINS QUARTER STRENGTH (0.125%) 480 ML BOTTLE TOP SCH (12:50)
[2018-07-22 16:00] VITALS: BP_SYST 103; BP_SYST 110; BP_DIAS 54; BP_DIAS 69
[2018-07-22] MEDS: HYDROCODONE/APAP 5/325MG 1 EACH TABLET PO PRN ×2 (17:08→18:34)
[2018-07-22] MEDS: ACETAMINOPHEN 325 MG TABLET PO PRN (18:40)
--- NOTE | 2018-07-22 18:45 | NUR ---
RN NOTE BLOOD THINNER DO NOT GIVE BLOOD THINNER PER FAMILY REQUEST
[2018-07-22 20:00] VITALS: BP 109/59
[2018-07-22] MEDS: *INSULIN REGULAR(HUMULIN R)HUM 100 UNIT/ML VIAL SQ PRN (23:03)
[2018-07-23] MEDS: IV NS 0.9% 1,000 ML IV PRN ×2 (00:49→11:28)
--- NOTE | 2018-07-23 02:10 | NUR ---
RN NOTE CALLED ALISON LERMA NP TO CLARIFY MISCELLANEOUS ORDER - NO BLOOD THINNER MEDICATIONS DUE TO BLEEDING IN THE PAST, PER ALISON LERMA NP DO NOT ADMINISTER 6AM DOSE OF HEPARIN
[2018-07-23 04:00] VITALS: BP 154/91
--- NOTE | 2018-07-23 04:15 | NUR ---
RN NOTE REPORT PROVIDED TO RASHMI YU TO CONTINUE CARE
--- NOTE | 2018-07-23 04:30 | NUR ---
MS RN NOTE PATIENT RECEIVED, PATIENT FEBRILE 650 MG OF TYLENOL GIVEN PER MD ORDER
[2018-07-23] MEDS: ACETAMINOPHEN 325 MG TABLET PO PRN (04:35)
[2018-07-23] MEDS: PIPERACILLIN /TAZOBACTAM 3.375 G in IV D5W 100 ML IV SCH (04:39)
[2018-07-23] MEDS: HEPARIN SODIUM, PORCINE 5000 UNITS/1 ML VIAL SQ SCH (04:44)
--- NOTE | 2018-07-23 06:15 | NUR ---
RN NOTE NOTIFIED ALISON LERMA NP TO FOLLOW UP ON MEDICATION RECON., PER ALISON LERMA NP SHE WILL FOLLOW UP ON MED RECON TODAY
[2018-07-23 06:38] LABS: CALCIUM, SERUM 7.9 mg/dL (8.5-10.1); CARBON DIOXIDE 24 mmol/L (21-32); CHLORIDE 105 mmol/L (98-107); CREATININE 0.7 mg/dL (0.6-1.3); GLUCOSE 200 mg/dL (74-106); MAGNESIUM 1.6 mg/dL (1.8-2.4); PHOSPHORUS 1.8 mg/dL (2.5-4.9); POTASSIUM 3.7 mmol/L (3.5-5.1); SODIUM SERUM 136 mmol/L (136-145); UREA NITROGEN, BLOOD 14 mg/dL (7-18)
[2018-07-23 06:44] LABS: BASOPHILS % (AUTO) 0.3 % (0.0-2.0); EOSINOPHILS % (AUTO) 0.2 % (0.0-6.0); HEMATOCRIT 31 % (33-45); LYMPHOCYTES # (AUTO) 0.6 /CMM (0.8-4.8); LYMPHOCYTES % (AUTO) 11.2 % (20.0-44.0); MEAN CORPUSCULAR HGB CONC 33 g/dl (31.0-36.0); MEAN CORPUSCULAR VOLUME 89 fL (82-100); MONOCYTES # (AUTO) 0.6 /CMM (0.1-1.30); MONOCYTES % (AUTO) 10.3 % (2.0-12.0); NEUTROPHILS # (AUTO) 4.2 /CMM (1.8-8.9); PLATELET COUNT (AUTO) 133 /CMM (150-450); RED BLOOD CELL COUNT(AUTO) 3.42 MIL/uL (4.0-5.2); WHITE BLOOD COUNT (AUTO) 5.4 K/uL (4.3-11.0)
[2018-07-23] MEDS: BLOOD SUGAR DIAGNOSTIC 1 EACH STRIP IN SCH ×4 (06:52→21:30)
[2018-07-23] MEDS: PANTOPRAZOLE 40 MG TABLET.DR PO SCH (06:53)
[2018-07-23] MEDS: INSULIN REGULAR, HUMAN 100 UNIT/ML 3 ML VIAL SQ PRN ×2 (06:55→17:17)
--- NOTE | 2018-07-23 07:00 | NUR ---
MS RN NOTE PATIENT TOLERATED THE NIGHT WELL, NO S.S OF DISTRESS. RN WILL ENDORSE POC TO AM FOR SUSANNA
--- NOTE | 2018-07-23 07:00 | NUR ---
MS RN NOTES RECEIVED PT IN BED, A/OX1. PT HAS MARCUS WITH CLEAR YELLOW URINE DRAINING. ON 2L NC O2 SAT 98%. REPOSITIONED PT IN BED. PT HAS NS VIA R HAND IV NO S/SX OF INFECTION. BED IN LOCKED/LOWEST POSITION. CALL LIGHT IN REACH. WILL CONT TO MONITOR.
[2018-07-23 07:35] LABS: BAND % (MANUAL) 1 % (0.0-5.0); LYMPHOCYTES % (MANUAL) 7 % (16-48); NEUTROPHILS % (MANUAL) 83 (42-76)
--- NOTE | 2018-07-23 07:35 | NUR ---
WOUND CARE CONSULT WOUND CARE RECEIVED CONSULT FOR WOUNDS. WOUND CARE WILL DEFER CONSULT AND ALL TREATMENT PLANS TO PLASTIC SURGICAL TEAM WHO ARE CURRENTLY FOLLOWING. PATIENT WITH ISRAEL AT 11, ALL PRESSURE ULCER PREVENTION MEASURES ARE NOTED TO BE IN PLACE. WILL SEE PRN.
[2018-07-23 07:36] LABS: EOSINOPHILS % (MANUAL) 1 % (0-4); MONOCYTES % (MANUAL) 8 % (0-11.0)
[2018-07-23 08:00] VITALS: BP 108/46
[2018-07-23] MEDS: METOPROLOL TARTRATE 25 MG TABLET PO SCH ×2 (08:48→17:16)
[2018-07-23] MEDS: SPIRONOLACTONE 25 MG TABLET PO SCH (08:48)
[2018-07-23] MEDS: MEMANTINE HCL 5 MG TABLET PO SCH ×2 (08:48→17:16)
[2018-07-23] MEDS: METHIMAZOLE (5MG) 5 MG TABLET PO SCH (08:49)
[2018-07-23] MEDS ORDERED: INSULIN GLARGINE, 100 UNIT/ML CARTRIDGE SQ SCH (09:00)
[2018-07-23] MEDS ORDERED: FUROSEMIDE 20 MG TABLET PO SCH (09:00)
[2018-07-23] MEDS: DAKINS QUARTER STRENGTH (0.125%) 480 ML BOTTLE TOP SCH (09:13)
[2018-07-23] MEDS: Z GUARD REMEDY 2 OZ OINT TP PRN (09:13)
[2018-07-23] MEDS: Z GUARD REMEDY 2 OZ OINT TP SCH (09:13)
[2018-07-23] MEDS: Magnesium 1GM/D5W 100ML PREMIX 100 ML IV SCH ×2 (10:10→11:54)
[2018-07-23] MEDS ORDERED: K PHOS NEUTRAL 250 MG TABLET PO ONE (10:30)
[2018-07-23] MEDS ORDERED: DEXTROSE 50%-WATER 50 ML DISP.SYRIN IV PRN (12:30)
[2018-07-23] MEDS ORDERED: INSULIN GLARGINE, 100 UNIT/ML CARTRIDGE SQ ONE (12:30)
[2018-07-23] MEDS: *INSULIN REGULAR(HUMULIN R)HUM 100 UNIT/ML VIAL SQ PRN ×2 (12:59→21:38)
[2018-07-23] MEDS ORDERED: MEROPENEM 500 MG in IV NS 0.9% 50 ML IV SCH (13:00)
[2018-07-23] MEDS: MEROPENEM 1 G in IV NS 0.9% 100 ML IV SCH (13:57)
[2018-07-23 16:00] VITALS: BP 101/54
--- NOTE | 2018-07-23 19:00 | NUR ---
MS RN NOTES PT ENDORSED TO PM SHIFT FOR SUSANNA. PT ATE DINNER WITH DAUGHTER FEEDING. PT RESTING IN BED/NO S/SX OF DISTRESS NOTED. BED IN LOCKED/LOWEST POSITION. CALL LIGHT IN REACH.
[2018-07-23 20:00] VITALS: BP 126/64
[2018-07-23] MEDS: ATORVASTATIN 10 MG TABLET PO SCH (21:32)
[2018-07-24] MEDS: MEROPENEM 1 G in IV NS 0.9% 100 ML IV SCH ×2 (00:08→14:27)
[2018-07-24] MEDS: HYDROCODONE/APAP 5/325MG 1 EACH TABLET PO PRN (01:13)
[2018-07-24] MEDS: ZOLPIDEM TARTRATE 5 MG TABLET PO PRN ×2 (01:14→22:57)
[2018-07-24 04:00] VITALS: BP 121/66
[2018-07-24] MEDS: IV NS 0.9% 1,000 ML IV PRN (05:10)
[2018-07-24] MEDS: BLOOD SUGAR DIAGNOSTIC 1 EACH STRIP IN SCH ×4 (06:58→21:53)
[2018-07-24 07:22] LABS: BASOPHILS % (AUTO) 0.8 % (0.0-2.0); EOSINOPHILS % (AUTO) 1.3 % (0.0-6.0); HEMATOCRIT 31 % (33-45); HEMOGLOBIN 10.2 g/dL (11.5-14.8); LYMPHOCYTES # (AUTO) 1.3 /CMM (0.8-4.8); LYMPHOCYTES % (AUTO) 28.4 % (20.0-44.0); MEAN CORPUSCULAR HGB CONC 32 g/dl (31.0-36.0); MEAN CORPUSCULAR VOLUME 88 fL (82-100); MONOCYTES # (AUTO) 0.8 /CMM (0.1-1.30); MONOCYTES % (AUTO) 18.1 % (2.0-12.0); NEUTROPHILS # (AUTO) 2.4 /CMM (1.8-8.9); NEUTROPHILS % (AUTO) 51.4 % (43.0-81.0); PLATELET COUNT (AUTO) 137 /CMM (150-450); RED BLOOD CELL COUNT(AUTO) 3.56 MIL/uL (4.0-5.2); WHITE BLOOD COUNT (AUTO) 4.6 K/uL (4.3-11.0)
[2018-07-24 07:33] LABS: CALCIUM, SERUM 7.9 mg/dL (8.5-10.1); CARBON DIOXIDE 28 mmol/L (21-32); CHLORIDE 107 mmol/L (98-107); CREATININE 0.5 mg/dL (0.6-1.3); GLUCOSE 130 mg/dL (74-106); MAGNESIUM 1.6 mg/dL (1.8-2.4); PHOSPHORUS 2.2 mg/dL (2.5-4.9); POTASSIUM 3.4 mmol/L (3.5-5.1); SODIUM SERUM 142 mmol/L (136-145); UREA NITROGEN, BLOOD 12 mg/dL (7-18)
--- NOTE | 2018-07-24 07:39 | NUR ---
RAMP BOSS OPENING NOTES BEDSIDE REPORT GIVEN BY NOC. PATIENT AWAKE AND ALERT X1 BANGLADESHI SPEAKING. ON 2 LTRS NASAL CANNULA MO SIGNS OR SYMPTOMS OF RESPIRATORY DISTRESS OR ACUTE PAIN NOTED. IVF RUNNING IN (R) HAND #18 GAUGE NS@ 100ML/HR SAFETY PRECAUTIONS IN PLACE BED IN LOW POSITION CALL LIGHT WITHIN REACH WILL CONT TO MONITOR
[2018-07-24 08:00] VITALS: BP 133/67
[2018-07-24] MEDS: METOPROLOL TARTRATE 25 MG TABLET PO SCH ×2 (08:41→17:43)
[2018-07-24] MEDS: MEMANTINE HCL 5 MG TABLET PO SCH ×2 (08:41→17:43)
[2018-07-24] MEDS: SPIRONOLACTONE 25 MG TABLET PO SCH (08:41)
[2018-07-24] MEDS: PANTOPRAZOLE 40 MG TABLET.DR PO SCH (08:42)
[2018-07-24] MEDS: METHIMAZOLE (5MG) 5 MG TABLET PO SCH (08:42)
[2018-07-24] MEDS: Z GUARD REMEDY 2 OZ OINT TP SCH (08:45)
[2018-07-24] MEDS: INSULIN GLARGINE, 100 UNIT/ML CARTRIDGE SQ SCH (08:45)
[2018-07-24] MEDS: DAKINS QUARTER STRENGTH (0.125%) 480 ML BOTTLE TOP SCH (08:45)
[2018-07-24] MEDS ORDERED: POTASSIUM CHLORIDE 20 MEQ TAB.PRT.SR PO SCH (11:30)
[2018-07-24] MEDS: Magnesium 1GM/D5W 100ML PREMIX 100 ML IV SCH ×2 (11:42→12:41)
[2018-07-24] MEDS ORDERED: K PHOS NEUTRAL 250 MG TABLET PO ONE (12:00)
[2018-07-24] MEDS: INSULIN REGULAR, HUMAN 100 UNIT/ML 3 ML VIAL SQ PRN ×2 (12:05→17:44)
[2018-07-24 16:00] VITALS: BP 111/58
--- NOTE | 2018-07-24 19:14 | NUR ---
RN CLOSING NOTES BEDSIDE REPORT GIVEN TO NOC SHIFT. PATIENT ALERT AND ORIENTED X1 ISRAELI SPEAKING . NO SIGNS OR SYMPTOMS OF DISTRESS ON 2 LTRS NASAL CANNULA NO COMPLAINTS OF ACUTE PAIN. WOUND TREATMENT COMPLETED TO SACRAL AND HIPS. APPETITE GOOD NO N/V/D ON SHIFT. BLOOD SUGAR ELEVATED WITH COVERAGE.MEDICATION ADMINISTERED WITH NO ADVERSE RXN. SAFETY PRECAUTIONS IN PLACE BED IN LOW POSITION CALL LIGHT WITHIN REACH SUSANNA
--- NOTE | 2018-07-24 19:31 | NUR ---
MS RN NOTE: RECEIVED PT ON BED ASLEEP BUT AROUSES EASILY TO VERBAL AND TACTILE STIMULI. NO APPARENT DISTRESS NOTED. NO FACIAL GRIMACING OR ANY SIGNS OF PAIN NOTED. ON 2LPM NASAL CANNULA, NO SOB NOTED. IV ON RIGHT HAND #18 INTACT AND PATENT, FLUSHING WELL. NO SIGNS/SYMPTOMS OF INFILTRATION NOTED. KEPT CLEAN, DRY AND COMFORTABLE. SAFETY AND FALL PRECAUTIONS OBSERVED AND MAINTAINED.CALL LIGHT PLACED WITHIN REACH. WILL CONTINUE TO MONITOR PT.
[2018-07-24 20:00] VITALS: BP 109/54
[2018-07-24] MEDS: ATORVASTATIN 10 MG TABLET PO SCH (21:53)
[2018-07-24] MEDS: *INSULIN REGULAR(HUMULIN R)HUM 100 UNIT/ML VIAL SQ PRN (21:57)
[2018-07-25] MEDS: HYDROCODONE/APAP 5/325MG 1 EACH TABLET PO PRN ×3 (00:03→20:59)
[2018-07-25] MEDS: MEROPENEM 1 G in IV NS 0.9% 100 ML IV SCH ×2 (00:06→12:41)
[2018-07-25 04:00] VITALS: BP 105/56
[2018-07-25 06:30] LABS: HEMATOCRIT 31 % (33-45); MEAN CORPUSCULAR VOLUME 87 fL (82-100); WHITE BLOOD COUNT (AUTO) 5.9 K/uL (4.3-11.0)
[2018-07-25 06:31] LABS: BASOPHILS % (AUTO) 0.6 % (0.0-2.0); EOSINOPHILS % (AUTO) 1.5 % (0.0-6.0); LYMPHOCYTES # (AUTO) 1.7 /CMM (0.8-4.8); LYMPHOCYTES % (AUTO) 28.2 % (20.0-44.0); MEAN CORPUSCULAR HGB CONC 33 g/dl (31.0-36.0); MONOCYTES # (AUTO) 0.7 /CMM (0.1-1.30); MONOCYTES % (AUTO) 11.2 % (2.0-12.0); NEUTROPHILS # (AUTO) 3.4 /CMM (1.8-8.9); NEUTROPHILS % (AUTO) 58.5 % (43.0-81.0); PLATELET COUNT (AUTO) 154 /CMM (150-450)
[2018-07-25 06:32] LABS: CALCIUM, SERUM 8.4 mg/dL (8.5-10.1); CARBON DIOXIDE 29 mmol/L (21-32); CHLORIDE 110 mmol/L (98-107); CREATININE 0.5 mg/dL (0.6-1.3); GLUCOSE 150 mg/dL (74-106); MAGNESIUM 1.8 mg/dL (1.8-2.4); PHOSPHORUS 2.7 mg/dL (2.5-4.9); POTASSIUM 4.1 mmol/L (3.5-5.1); SODIUM SERUM 144 mmol/L (136-145); UREA NITROGEN, BLOOD 13 mg/dL (7-18)
--- NOTE | 2018-07-25 06:47 | NUR ---
MS RN NOTE: NO CHANGES NOTED THROUGHOUT THE SHIFT. NO APPARENT DISTRESS NOTED. NO FACIAL GRIMACING OR ANY SIGNS OF PAIN NOTED. ON 2LPM NASAL CANNULA, BREATHING EVEN AND UNLABORED WITH NORMAL RESPIRATIONS. KEPT CLEAN, DRY AND COMFORTABLE. SIDE RAILS UP X3. BED ALARM ON. BED LOCKED AND IN LOWEST POSITION. ALL NEEDS ATTENDED. WILL ENDORSE TO DAY SHIFT RN FOR CONTINUITY OF CARE.
--- NOTE | 2018-07-25 07:42 | NUR ---
FIRESETTER OPENING NOTES BEDSIDE REPORT GIVEN BY NOC. PATIENT AWAKE AND ALERT X1 OMANI SPEAKING. ON 2 LTRS NASAL CANNULA NO SIGNS OR SYMPTOMS OF RESPIRATORY DISTRESS OR ACUTE PAIN NOTED. IVF TKO (R) HAND #18 GAUGE NS@ 3ML/HR SAFETY PRECAUTIONS IN PLACE BED IN LOW POSITION CALL LIGHT WITHIN REACH WILL CONT TO MONITOR
[2018-07-25] MEDS: BLOOD SUGAR DIAGNOSTIC 1 EACH STRIP IN SCH ×4 (07:47→21:07)
[2018-07-25 08:00] VITALS: BP 106/56
[2018-07-25] MEDS: METOPROLOL TARTRATE 25 MG TABLET PO SCH ×2 (08:03→16:31)
[2018-07-25] MEDS: SPIRONOLACTONE 25 MG TABLET PO SCH (08:03)
[2018-07-25] MEDS: METHIMAZOLE (5MG) 5 MG TABLET PO SCH (08:03)
[2018-07-25] MEDS: DAKINS QUARTER STRENGTH (0.125%) 480 ML BOTTLE TOP SCH (08:04)
[2018-07-25] MEDS: MEMANTINE HCL 5 MG TABLET PO SCH ×2 (08:04→16:31)
[2018-07-25] MEDS: PANTOPRAZOLE 40 MG TABLET.DR PO SCH (08:04)
[2018-07-25] MEDS: Z GUARD REMEDY 2 OZ OINT TP SCH (08:05)
[2018-07-25] MEDS: INSULIN GLARGINE, 100 UNIT/ML CARTRIDGE SQ SCH (08:26)
--- NOTE | 2018-07-25 10:00 | NUR ---
LANDING SCALER NOTES DR DINH TO SEE PATIENT AND ORDER PICC/MID LINE FOR HOME ANTIBIOTIC TREATMENT X7 DAYS. NURSING GROUP RESERVATIONS COORDINATOR MADE KNOWN AWAITING FOR RESPONSE.
[2018-07-25] MEDS: INSULIN REGULAR, HUMAN 100 UNIT/ML 3 ML VIAL SQ PRN ×2 (12:10→16:48)
--- NOTE | 2018-07-25 12:20 | NUR ---
DIGITAL IMAGER NOTES MIDLINE PLACED BY PICC NURSE. LOCATED ON LEFT BRACHIAL #18. PATENT FLUSHED AND HAS GOOD BLOOD RETURN. INSERTED PT TO BE D/C HOME WITH ABX THERAPY X7DAYS.
[2018-07-25 16:00] VITALS: BP 114/60
--- NOTE | 2018-07-25 19:23 | NUR ---
RN MS CLOSING NOTES BEDSIDE REPORT GIVEN TO NOC SHIFT. PATIENT ALERT AND ORIENTED X1 UZBEK SPEAKING . NO SIGNS OR SYMPTOMS OF DISTRESS ON 2L NC NO COMPLAINTS OF ACUTE PAIN. WOUND TREATMENT COMPLETED TO SACRAL AND HIPS. APPETITE GOOD NO N/V/D ON SHIFT ATE 100% OF ALL HER MEALS. BLOOD SUGAR ELEVATED WITH COVERAGE. MEDICATION ADMINISTERED WITH NO ADVERSE RXN. SAFETY PRECAUTIONS IN PLACE BED IN LOW POSITION CALL LIGHT WITHIN REACH SUSANNA
[2018-07-25 20:00] VITALS: BP 118/53
[2018-07-25] MEDS: ZOLPIDEM TARTRATE 5 MG TABLET PO PRN (20:59)
[2018-07-25] MEDS: ATORVASTATIN 10 MG TABLET PO SCH (21:00)
[2018-07-25] MEDS: *INSULIN REGULAR(HUMULIN R)HUM 100 UNIT/ML VIAL SQ PRN (21:09)
--- NOTE | 2018-07-25 23:30 | NUR ---
MS RN NOTE: RECEIVED PT ON BED AWAKE BUT WITH EPISODES OF CONFUSION, CZECH SPEAKING. NO APPARENT DISTRESS NOTED. NO FACIAL GRIMACING OR ANY SIGNS OF PAIN NOTED. ON 2LPM NASAL CANNULA, NO SOB NOTED. IV ON RIGHT HAND #18 AND LEFT UPPER ARM MIDLINE INTACT AND PATENT, FLUSHING WELL. KEPT CLEAN, DRY AND COMFORTABLE. SAFETY AND FALL PRECAUTIONS OBSERVED AND MAINTAINED. CALL LIGHT PLACED WITHIN REACH. WILL CONTINUE TO MONITOR PT. Addendum: 07/25/18 at 2332 by DAVID DOMINGUEZ RN WRONG TIME; OPENING NOTES AT 1930
[2018-07-26] MEDS: MEROPENEM 1 G in IV NS 0.9% 100 ML IV SCH ×2 (01:35→13:14)
[2018-07-26 04:00] VITALS: BP 114/66
[2018-07-26 06:40] LABS: BASOPHILS % (AUTO) 0.8 % (0.0-2.0); EOSINOPHILS % (AUTO) 2.5 % (0.0-6.0); HEMATOCRIT 30 % (33-45); HEMOGLOBIN 10.1 g/dL (11.5-14.8); LYMPHOCYTES # (AUTO) 1.7 /CMM (0.8-4.8); LYMPHOCYTES % (AUTO) 28.3 % (20.0-44.0); MEAN CORPUSCULAR HGB CONC 33 g/dl (31.0-36.0); MEAN CORPUSCULAR VOLUME 87 fL (82-100); MONOCYTES # (AUTO) 0.8 /CMM (0.1-1.30); MONOCYTES % (AUTO) 13.2 % (2.0-12.0); NEUTROPHILS # (AUTO) 3.2 /CMM (1.8-8.9); NEUTROPHILS % (AUTO) 55.2 % (43.0-81.0); PLATELET COUNT (AUTO) 155 /CMM (150-450); RED BLOOD CELL COUNT(AUTO) 3.49 MIL/uL (4.0-5.2); WHITE BLOOD COUNT (AUTO) 5.9 K/uL (4.3-11.0)
[2018-07-26 06:43] LABS: CALCIUM, SERUM 8.3 mg/dL (8.5-10.1); CARBON DIOXIDE 29 mmol/L (21-32); CHLORIDE 107 mmol/L (98-107); CREATININE 0.4 mg/dL (0.6-1.3); GLUCOSE 196 mg/dL (74-106); MAGNESIUM 1.6 mg/dL (1.8-2.4); POTASSIUM 4.3 mmol/L (3.5-5.1); SODIUM SERUM 141 mmol/L (136-145); UREA NITROGEN, BLOOD 17 mg/dL (7-18)
--- NOTE | 2018-07-26 07:16 | NUR ---
MS RN OPENING NOTE RECEIVED PT IN BED, AWAKE AND ALERT, EYES OPEN SPONTANEOUSLY TO VERBAL AND TACTILE STIMULI. PT IS PRIMARILY GREEN[place] SPEAKING. NO ACUTE DISTRESS NOTED AT THIS TIME, BREATHING IS EVEN AND UNLABORED ON 2L NC. L UPPER ARM MIDLINE PATENT WITH GOOD BLOOD RETURN AND WITHOUT REDNESS OR SWELLING. ASPIRATION AND CONTRACT PRECAUTIONS MAINTAINED, ALL NEEDS ATTENDED TO. BED IS LOCKED AND IN LOWEST POSITION, SIDE RAILS UP X3, BED ALARM ON, CALL LIGHT WITHIN REACH.
[2018-07-26 08:00] VITALS: BP 137/80
[2018-07-26] MEDS: BLOOD SUGAR DIAGNOSTIC 1 EACH STRIP IN SCH ×4 (08:20→21:48)
[2018-07-26] MEDS: PANTOPRAZOLE 40 MG TABLET.DR PO SCH (08:21)
[2018-07-26] MEDS: SPIRONOLACTONE 25 MG TABLET PO SCH (08:23)
[2018-07-26] MEDS: MEMANTINE HCL 5 MG TABLET PO SCH ×2 (08:23→17:13)
[2018-07-26] MEDS: METOPROLOL TARTRATE 25 MG TABLET PO SCH ×2 (08:23→17:13)
[2018-07-26] MEDS: METHIMAZOLE (5MG) 5 MG TABLET PO SCH (08:24)
[2018-07-26] MEDS: Z GUARD REMEDY 2 OZ OINT TP PRN (08:24)
[2018-07-26] MEDS: DAKINS QUARTER STRENGTH (0.125%) 480 ML BOTTLE TOP SCH (08:24)
[2018-07-26] MEDS: INSULIN GLARGINE, 100 UNIT/ML CARTRIDGE SQ SCH (08:29)
[2018-07-26] MEDS: Z GUARD REMEDY 2 OZ OINT TP SCH (08:30)
--- NOTE | 2018-07-26 08:30 | NUR ---
RN ACCU CHECK BS: [id number], HOWEVER SLIDING SCALE REGULAR INSULIN HELD DUE TO PT ONLY WANTING TO EAT APPROXIMALLY 2-3 BITES OF BREAKFAST AND REFUSING REST. LANTUS INSULIN ADMINISTERED ORDERED.
[2018-07-26] MEDS: Magnesium 1GM/D5W 100ML PREMIX 100 ML IV SCH ×2 (10:37→11:37)
[2018-07-26] MEDS: INSULIN REGULAR, HUMAN 100 UNIT/ML 3 ML VIAL SQ PRN ×2 (12:17→17:14)
--- NOTE | 2018-07-26 12:20 | NUR ---
MS RN MICHELL MARTINEZ FROM [employer] AT THE BEDSIDE. PROVIDED FAMILY CONTACT INFORMATION, HEIGHT, WEIGHT, IV SITE, HOME HEALTH AGENCY CONTACT INFORMATION. PER JUAN SHE WILL GO UP TO CM OFFICE TO DISCUSS CONTINUUM OF CARE.
--- NOTE | 2018-07-26 13:56 | NUR ---
MS RN NOTE PER DR. DINH, PT CLEAR FOR D/C HOME WITH HOME HEALTH TODAY AND SON AGREEABLE TO PLAN OF CARE. WILL PLACE ORDERS.
--- NOTE | 2018-07-26 14:27 | NUR ---
MS RN NOTE PER BINDU IN CASE MANAGEMENT, HOME HEALTH ARRANGEMENT NOT FINALIZED YET. SHE WILL UPDATE THE NURSE OR CHARGE NURSE WHEN FINALIZED. STILL PENDING D/C ORDERS AND D/C SUMMARY FROM DR. DINH.
[2018-07-26 16:00] VITALS: BP 119/56
[2018-07-26] MEDS ORDERED: MERO1VIA3 IV (16:31)
--- NOTE | 2018-07-26 18:35 | NUR ---
MS RN CLOSING NOTE PT IN BED, AWAKE AND ALERT, EYES OPEN SPONTANEOUSLY TO VERBAL AND TACTILE STIMULI. PT IS PRIMARILY PORTUGUESE SPEAKING. NO ACUTE DISTRESS NOTED AT THIS TIME, BREATHING IS EVEN AND UNLABORED ON 2L NC. L UPPER ARM MIDLINE PATENT WITH GOOD BLOOD RETURN AND WITHOUT REDNESS OR SWELLING. MARCUS CATHETER NOTED TO BE DRAINING CLEAR, YELLOW URINE. ASPIRATION AND CONTRACT PRECAUTIONS MAINTAINED, ALL NEEDS ATTENDED TO. PER BINDU IN CASE MANAGEMENT, PT IS FOR D/C AND BACK ROLLER TODAY AT APPROXIMATELY 8-8:30P.M. EXIT CARE AND D/C PAPERWORK COMPLETED. WOUND PHOTOS COMPLETED BED IS LOCKED AND IN LOWEST POSITION, SIDE RAILS UP X3, BED ALARM ON, CALL LIGHT WITHIN REACH. WILL ENDORSE TO KEYBOARD ACTION ASSEMBLER NURSE FOR CONTINUITY OF CARE.
[2018-07-26 20:00] VITALS: BP_SYST 140; BP_SYST 146; BP_DIAS 51; BP_DIAS 72
[2018-07-26] MEDS: ATORVASTATIN 10 MG TABLET PO SCH (21:41)
[2018-07-26] MEDS: *INSULIN REGULAR(HUMULIN R)HUM 100 UNIT/ML VIAL SQ PRN (21:46)
--- NOTE | 2018-07-26 22:57 | NUR ---
RN NOTES RECEIVED PATIENT IN BED, ALERT AND ORIENTED. NAMIBIAN OR MARSHALLESE SPEAKING. ABLE TO VERBALIZE NEEDS. NO DISTRESS NOTED. BREATHING EVEN AND UNLABORED. NO COMPLAINT OF PAIN OR DISCOMFORT. ANXIOUS. WANTED TO GO HOME. VITAL SIGNS WNL. AMBULANCE CAME AT ABOUNT 2200. PATIENT IN STABLE CONDITION. TRANSFERED TO [facility] SAFELY AND TAKEN BY AMBULANCE TO GO HOME. SPOKE GRAND DAUGHTER ZEHRA, SHE IS WAITING AT HOME FOR THE PATIENT.
== END 2018-07-26 23:29 | disposition home health service (06) | DRG 853 ==
LOC: ER 03:08 → TELE1 04:38 → MEDSG1 07-22 12:16
PROVIDERS: ATTEND Internal Medicine
PROC: 0KBP0ZZ Excision of Left Hip Muscle, Open Approach (ICD-10-PCS; principal; 2018-07-22)
PROC: 0KBN0ZZ Excision of Right Hip Muscle, Open Approach (ICD-10-PCS; 2018-07-22)
PROC: 05H633Z Insertion of Infusion Device into Left Subclavian Vein, Percutaneous Approach (ICD-10-PCS; 2018-07-25)
PROC: B547ZZA Ultrasonography of Left Subclavian Vein, Guidance (ICD-10-PCS; 2018-07-25)
DX: A41.9 Sepsis, unspecified organism (principal); L89.154 Pressure ulcer of sacral region, stage 4; E43 Unspecified severe protein-calorie malnutrition; G93.40 Encephalopathy, unspecified; I50.32 Chronic diastolic (congestive) heart failure; N39.0 Urinary tract infection, site not specified; E78.5 Hyperlipidemia, unspecified; E03.9 Hypothyroidism, unspecified; E11.65 Type 2 diabetes mellitus with hyperglycemia; I11.0 Hypertensive heart disease with heart failure; Z86.73 Personal history of transient ischemic attack (TIA), and cerebral infarction without residual deficits; Z86.718 Personal history of other venous thrombosis and embolism; Z95.5 Presence of coronary angioplasty implant and graft; I25.10 Atherosclerotic heart disease of native coronary artery without angina pectoris; D64.9 Anemia, unspecified; M10.9 Gout, unspecified; L30.4 Erythema intertrigo; L89.620 Pressure ulcer of left heel, unstageable; L89.610 Pressure ulcer of right heel, unstageable; B96.20 Unspecified Escherichia coli [E. coli] as the cause of diseases classified elsewhere; Z16.12 Extended spectrum beta lactamase (ESBL) resistance; R60.9 Edema, unspecified; I25.2 Old myocardial infarction; F01.50 Vascular dementia, unspecified severity, without behavioral disturbance, psychotic disturbance, mood disturbance, and anxiety; Z79.4 Long term (current) use of insulin
CPT/HCPCS: 36415; 36569; 71045-TC; 80048-TC; 80061-TC; 80076-TC; 81000-TC; 82010-TC; 82947-TC; 82962-TC; 83605-TC; 83735-TC; 84100-TC; 84484-TC; 85025-TC; 85730-TC; 87040-TC; 87081-TC; 87086-TC; 87186-TC; A4216; A6253; A6402; G0378; J0692; J1644; J1815; J2185; J2543; J3370; J3475; J3490; J7030; J7040; J7050; J7060